=== PATIENT | female | born 1965 | race American Indian/Alaskan Native ===

== ENCOUNTER 2016-11-03 10:26 | Emergency (ER) | payer MEDICARE | END 2016-11-03 11:17 | disposition left against medical advice (07) | LOC: ED 10:26 | DX: M79.606 Pain in leg, unspecified (principal); Z53.21 Procedure and treatment not carried out due to patient leaving prior to being seen by health care provider ==

== ENCOUNTER 2016-11-09 10:38 | Emergency (ER) | payer MEDICARE ==
[2016-11-09 11:21] LABS: Basophils % (Auto) 1.9 % (0.0-1.8); Eosinophils % (Auto) 2.2 % (0.0-4.3); Hematocrit 44.5 % (30.3-42.9); Hemoglobin 14.8 gm/dl (10.1-14.3); Mean Corpuscular HGB Conc 33 % (30-34); Mean Corpuscular Hemoglobin 32 pg (28-32); Mean Corpuscular Volume 96 fl (79-97); Platelet Count 212 K/mm3 (140-440); Red Blood Count 4.65 M/mm3 (3.65-5.03); Red Cell Distribution Width 13.1 % (13.2-15.2)
[2016-11-09 11:41] LABS: Anion Gap 19 mmol/L; Blood Urea Nitrogen 16 mg/dL (7-17); Calcium 10.1 mg/dL (8.4-10.2); Carbon Dioxide 25 mmol/L (22-30); Chloride 95.5 mmol/L (98-107); Glucose 427 mg/dL (65-100); Potassium 4.3 mmol/L (3.6-5.0); Sodium 135 mmol/L (137-145)
[2016-11-09] MEDS ORDERED: ZESTRIL PO ONE (12:15)
[2016-11-09] MEDS ORDERED: GLUCOPHAGE PO ONE (12:15)
[2016-11-09] MEDS ORDERED: HCTZ PO ONE (12:15)
--- NOTE | 2016-11-09 12:55 | Emergency Department Report ---
ED General Adult HPI - General Chief complaint: Extremity Injury, Lower Stated complaint: LEG PAIN Time Seen by Provider: 11/09/16 11:59 Source: patient Mode of arrival: Ambulatory Limitations: No Limitations - History of Present Illness Initial comments: 51-year-old female with a past medical history of hypertension, diabetic neuropathy, not insulin-dependent diabetes presents to the hospital requesting a refill her medication. Patient has been noncompliant with her medication 1 month the lack of primary care doctor. She complains of ongoing moderate left distal leg pain secondary to neuropathy. Also states she needs a muscle relaxer due to pain at night. Patient denies headache, nausea, vomiting, focal weakness or numbness. - Related Data Previous Rx's Medication Instructions Recorded Last Taken Type Ibuprofen [Motrin] 600 mg PO Q8H PRN #50 tablet 01/10/14 Unknown Rx Oxycodone HCl/Acetaminophen 1 each PO Q6HR PRN #20 tablet 01/10/14 Unknown Rx [Percocet 7.5-325 mg] HYDROcodone/APAP 5-325 [[place] 1 each PO Q6HR PRN #20 tablet 03/05/14 Unknown Rx 5-325 mg TAB] Lisinopril/Hydrochlorothiazide 1 tab PO QDAY #60 tablet 03/05/14 Unknown Rx [Zestoretic 20-25 mg] Gabapentin 300 mg PO BID #60 capsule 05/19/14 Unknown Rx Mineral Oil [Mineral Oil Heavy] 30 ml PO TID #1 oil 05/19/14 Unknown Rx Polyethylene Glycol 3350 [Miralax] 17 gm PO DAILY #10 powder 05/19/14 Unknown Rx methOCARBAMOL [Robaxin] 500 mg PO BID #14 tab 05/19/14 Unknown Rx Amoxicillin/K Clav Tab [Augmentin 1 tab PO Q12HR #20 tab 08/19/15 Unknown Rx 875 mg] Ibuprofen [Motrin 600 MG tab] 600 mg PO Q8H PRN #30 tablet 08/19/15 Unknown Rx guaiFENesin/CODEINE [Robitussin AC] 10 ml PO Q6HR PRN #180 ml 08/19/15 Unknown Rx Cyclobenzaprine HCl [Flexeril 5 MG 5 mg PO TID #20 tab 11/09/16 Unknown Rx TAB] Gabapentin [Neurontin] 300 mg PO Q8HR #90 capsule 11/09/16 Unknown Rx Lisinopril/Hydrochlorothiazide 1 tab PO QDAY #30 tab 11/09/16 Unknown Rx [Zestoretic 20-25 mg] metFORMIN [Glucophage] 500 mg PO BID #60 tablet 11/09/16 Unknown Rx Allergies Allergy/AdvReac Type Severity Reaction Status Date / Time No Known Allergies Allergy Verified 11/09/16 10:50 ED Review of Systems ROS: Stated complaint: LEG PAIN Other details as noted in HPI Comment: All other systems reviewed and negative Other: Constitutional: No fevers chills Eyes: No eye pain visual changes ENT: No ear pain or throat pain Neck: Denies pain Respiratory: Denies cough wheezing shortness of breath Cardiovascular: Denies chest pain, palpitations, syncope GI: Denies abdominal pain, nausea, vomiting, diarrhea : Denies dysuria Musculoskeletal: Denies back pain Skin: Denies rash, lesions, erythema Neurologic: Denies headache, numbness, weakness Psychiatric: Denies suicidal ideation, hallucinations ED Past Medical Hx - Past Medical History Hx Hypertension: Yes (noncompliant with meds) Hx Congestive Heart Failure: No Hx Diabetes: Yes Hx Asthma: No Hx COPD: No Hx HIV: No Additional medical history: neuropathy - Social History Smoking Status: Never Smoker Substance Use Type: None - Medications Home Medications: Home Medications Medication Instructions Recorded Confirmed Last Taken Type Ibuprofen [Motrin] 600 mg PO Q8H PRN #50 tablet 01/10/14 11/09/16 Unknown Rx Oxycodone HCl/Acetaminophen 1 each PO Q6HR PRN #20 tablet 01/10/14 11/09/16 Unknown Rx [Percocet 7.5-325 mg] HYDROcodone/APAP 5-325 [[place] 1 each PO Q6HR PRN #20 tablet 03/05/14 11/09/16 Unknown Rx 5-325 mg TAB] Lisinopril/Hydrochlorothiazide 1 tab PO QDAY #60 tablet 03/05/14 11/09/16 Unknown Rx [Zestoretic 20-25 mg] Gabapentin 300 mg PO BID #60 capsule 05/19/14 11/09/16 Unknown Rx Mineral Oil [Mineral Oil Heavy] 30 ml PO TID #1 oil 05/19/14 11/09/16 Unknown Rx Polyethylene Glycol 3350 [Miralax] 17 gm PO DAILY #10 powder 05/19/14 11/09/16 Unknown Rx methOCARBAMOL [Robaxin] 500 mg PO BID #14 tab 05/19/14 11/09/16 Unknown Rx Amoxicillin/K Clav Tab [Augmentin 1 tab PO Q12HR #20 tab 08/19/15 11/09/16 Unknown Rx 875 mg] Ibuprofen [Motrin 600 MG tab] 600 mg PO Q8H PRN #30 tablet 08/19/15 11/09/16 Unknown Rx guaiFENesin/CODEINE [Robitussin AC] 10 ml PO Q6HR PRN #180 ml 08/19/15 11/09/16 Unknown Rx Cyclobenzaprine HCl [Flexeril 5 MG 5 mg PO TID #20 tab 11/09/16 Unknown Rx TAB] Gabapentin [Neurontin] 300 mg PO Q8HR #90 capsule 11/09/16 Unknown Rx Lisinopril/Hydrochlorothiazide 1 tab PO QDAY #30 tab 11/09/16 Unknown Rx [Zestoretic 20-25 mg] metFORMIN [Glucophage] 500 mg PO BID #60 tablet 11/09/16 Unknown Rx ED Physical Exam - General Limitations: No Limitations - Other Other exam information: General: No limitations, patient is alert in no acute distress Head exam: Atraumatic, normocephalic Eyes exam: Normal appearance ENT: Moist mucous membrane, normal oropharynx Neck exam: Normal inspection, full range of motion, no meningismus nontender Respiratory exam: Clear to auscultation bilateral, no wheezes, rales, crackles Cardiovascular: Normal rate and rhythm, normal heart sounds Abdomen: Soft, nondistended, and nontender, with normal bowel sounds, no rebound, or guarding Extremity: Full range of motion normal inspection no deformity, no calf tenderness or edema Back: Normal Inspection, full range of motion, no tenderness Neurologic: Alert, oriented x3, cranial nerves intact, no motor or sensory deficit Psychiatric: normal affect, normal mood Skin: Warm, dry, intact ED Course Vital Signs 11/09/16 11/09/16 10:50 12:10 Temperature 98.5 F Pulse Rate 99 H Respiratory 18 16 Rate Blood Pressure 204/102 O2 Sat by Pulse 98 Oximetry - Reevaluation(s) Reevaluation #1: 11/09/16 12:55 Patient refused IV treatment for glucose or Wednesday for BP recheck. Patient just wanted her recently prescribed medication doses. Most recent R Kaushal is from 2015 patient states there is no change. ED Medical Decision Making - Lab Data Result diagrams: 11/09/16 10:54 11/09/16 10:54 Lab Results 11/09/16 11/09/16 11/09/16 Range/Units 10:51 10:54 10:54 WBC 6.0 (4.5-11.0) K/mm3 RBC 4.65 (3.65-5.03) M/mm3 Hgb 14.8 H (10.1-14.3) gm/dl Hct 44.5 H (30.3-42.9) % MCV 96 (79-97) fl MCH 32 (28-32) pg MCHC 33 (30-34) % RDW 13.1 L (13.2-15.2) % Plt Count 212 (140-440) K/mm3 Lymph % (Auto) 35.4 H (13.4-35.0) % [place] % (Auto) 8.6 H (0.0-7.3) % Eos % (Auto) 2.2 (0.0-4.3) % Baso % (Auto) 1.9 H (0.0-1.8) % Lymph # 2.1 (1.2-5.4) K/mm3 [place] # 0.5 (0.0-0.8) K/mm3 Eos # 0.1 (0.0-0.4) K/mm3 Baso # 0.1 (0.0-0.1) K/mm3 Seg Neutrophils % 51.9 (40.0-70.0) % Seg Neutrophils # 3.1 (1.8-7.7) K/mm3 VBG pH (7.320-7.420) Sodium 135 L (137-145) mmol/L Potassium 4.3 (3.6-5.0) mmol/L Chloride 95.5 L (98-107) mmol/L Carbon Dioxide 25 (22-30) mmol/L Anion Gap 19 mmol/L BUN 16 (7-17) mg/dL Creatinine 0.8 (0.7-1.2) mg/dL Estimated GFR > 60 ml/min BUN/Creatinine Ratio 20.00 % Glucose 427 H (65-100) mg/dL POC Glucose 435 H (70-105) Calcium 10.1 (8.4-10.2) mg/dL 11/09/16 Range/Units 10:54 WBC (4.5-11.0) K/mm3 RBC (3.65-5.03) M/mm3 Hgb (10.1-14.3) gm/dl Hct (30.3-42.9) % MCV (79-97) fl MCH (28-32) pg MCHC (30-34) % RDW (13.2-15.2) % Plt Count (140-440) K/mm3 Lymph % (Auto) (13.4-35.0) % [place] % (Auto) (0.0-7.3) % Eos % (Auto) (0.0-4.3) % Baso % (Auto) (0.0-1.8) % Lymph # (1.2-5.4) K/mm3 [place] # (0.0-0.8) K/mm3 Eos # (0.0-0.4) K/mm3 Baso # (0.0-0.1) K/mm3 Seg Neutrophils % (40.0-70.0) % Seg Neutrophils # (1.8-7.7) K/mm3 VBG pH 7.288 L (7.320-7.420) Sodium (137-145) mmol/L Potassium (3.6-5.0) mmol/L Chloride (98-107) mmol/L Carbon Dioxide (22-30) mmol/L Anion Gap mmol/L BUN (7-17) mg/dL Creatinine (0.7-1.2) mg/dL Estimated GFR ml/min BUN/Creatinine Ratio % Glucose (65-100) mg/dL POC Glucose (70-105) Calcium (8.4-10.2) mg/dL - Medical Decision Making Patient has chronic hypertension uncontrolled secondary to medication noncompliance. No signs of hypertensive emergency at this time. Patient also has ongoing diabetic neuropathy pain without signs of DKA. Patient received metformin 1000 mg and her most recent BP medication dose and declined more aggressive treatment in the ED. Plan to discharge home with refills and follow- up. - Differential Diagnosis DKA, hypertensive emergency, neuropathy, noncompliance, hypoglycemia Critical Care Time: No Critical care attestation.: If time is entered above; I have spent that time in minutes in the direct care of this critically ill patient, excluding procedure time. ED Disposition Clinical Impression: Diabetes mellitus with hyperglycemia, Uncontrolled hypertension, Noncompliance with medication regimen, Diabetic neuropathy Disposition: DC-01 TO HOME OR SELFCARE Is pt being admited?: No Does the pt Need Aspirin: No Condition: Stable Additional Instructions: Take the medications as prescribed. Follow with primary care doctor or clinic provided. Return if symptoms worsen. Prescriptions: Cyclobenzaprine HCl [Flexeril 5 MG TAB] 5 mg PO TID #20 tab Gabapentin [Neurontin] 300 mg PO Q8HR #90 capsule Lisinopril/Hydrochlorothiazide [Zestoretic 20-25 mg] 1 tab PO QDAY #30 tab metFORMIN [Glucophage] 500 mg PO BID #60 tablet Referrals: [facility] [Provider Group] - 3-5 Days EDDY ARRIAGA MD [Staff Physician] - 3-5 Days Time of Disposition: 12:59
[2016-11-09 12:58] LABS: Bacteria,Urine 1+ /HPF (Negative); Bilirubin,Urine NEG (Negative); Blood,Urine SM (Negative); Ketones,Urine NEG (Negative); Leukocyte Esterase,Urine MOD (Negative); Mucus,Urine FEW /HPF; Nitrite,Urine POS (Negative); Protein,Urine <15 mg/dL mg/dL (Negative); Urobilinogen,Urine < 2.0 mg/dL (<2.0)
[2016-11-09 13:19] VITALS: BP 194/86
== END 2016-11-09 13:24 | disposition home or self-care (01) ==
LOC: ED 10:38
DX: E11.65 Type 2 diabetes mellitus with hyperglycemia (principal); E11.21 Type 2 diabetes mellitus with diabetic nephropathy; I10 Essential (primary) hypertension
CPT/HCPCS: 36415; 80048; 81001; 82805; 82962; 85025; 99284

== ENCOUNTER 2017-09-19 09:25 | Emergency (ER) | payer MEDICARE ==
[2017-09-19 09:38] VITALS: BP 160/94
--- NOTE | 2017-09-19 09:56 | Emergency Department Report ---
ED General Adult HPI - General Chief complaint: Pain General Stated complaint: LEG PAIN Time Seen by Provider: 09/19/17 09:48 Source: patient Mode of arrival: Ambulatory Limitations: No Limitations - History of Present Illness Initial comments: Patient is 52 years old female with history of hypertension, diabetes and diabetic neuropathy. Patient presented to the ER complaining of bilateral lower extremity pain secondary to neuropathy per patient report. Patient stated that she is out of her blood pressure medicine, diabetes medicine and her Neurontin. Patient denied any headache, chest pain, weakness numbness or tingling sensation. - Related Data Previous Rx's Medication Instructions Recorded Last Taken Type Ibuprofen [Motrin] 600 mg PO Q8H PRN #50 tablet 01/10/14 Unknown Rx Oxycodone HCl/Acetaminophen 1 each PO Q6HR PRN #20 tablet 01/10/14 Unknown Rx [Percocet 7.5-325 mg] HYDROcodone/APAP 5-325 [[place] 1 each PO Q6HR PRN #20 tablet 03/05/14 Unknown Rx 5-325 mg TAB] Lisinopril/Hydrochlorothiazide 1 tab PO QDAY #60 tablet 03/05/14 Unknown Rx [Zestoretic 20-25 mg] Gabapentin 300 mg PO BID #60 capsule 05/19/14 Unknown Rx Mineral Oil [Mineral Oil Heavy] 30 ml PO TID #1 oil 05/19/14 Unknown Rx Polyethylene Glycol 3350 [Miralax] 17 gm PO DAILY #10 powder 05/19/14 Unknown Rx methOCARBAMOL [Robaxin] 500 mg PO BID #14 tab 05/19/14 Unknown Rx Amoxicillin/K Clav Tab [Augmentin 1 tab PO Q12HR #20 tab 08/19/15 Unknown Rx 875 mg] Ibuprofen [Motrin 600 MG tab] 600 mg PO Q8H PRN #30 tablet 08/19/15 Unknown Rx guaiFENesin/CODEINE [Robitussin AC] 10 ml PO Q6HR PRN #180 ml 08/19/15 Unknown Rx Cyclobenzaprine HCl [Flexeril 5 MG 5 mg PO TID #20 tab 11/09/16 Unknown Rx TAB] Gabapentin [Neurontin] 300 mg PO Q8HR #90 capsule 11/09/16 Unknown Rx Lisinopril/Hydrochlorothiazide 1 tab PO QDAY #30 tab 11/09/16 Unknown Rx [Zestoretic 20-25 mg] metFORMIN [Glucophage] 500 mg PO BID #60 tablet 11/09/16 Unknown Rx Allergies Allergy/AdvReac Type Severity Reaction Status Date / Time No Known Allergies Allergy Verified 11/09/16 10:50 ED Review of Systems ROS: Stated complaint: LEG PAIN Other details as noted in HPI Comment: All other systems reviewed and negative ENT: denies: throat pain Respiratory: denies: cough, shortness of breath, SOB with exertion Cardiovascular: denies: chest pain, palpitations Gastrointestinal: denies: abdominal pain, nausea Musculoskeletal: denies: back pain Neurological: denies: headache, weakness, numbness, paresthesias, confusion, abnormal gait ED Past Medical Hx - Past Medical History Previous Medical History?: Yes Hx Hypertension: Yes (noncompliant with meds) Hx Congestive Heart Failure: No Hx Diabetes: Yes Hx Asthma: No Hx COPD: No Hx HIV: No Additional medical history: neuropathy - Surgical History Past Surgical History?: No - Social History Smoking Status: Never Smoker Substance Use Type: Alcohol - Medications Home Medications: Home Medications Medication Instructions Recorded Confirmed Last Taken Type Ibuprofen [Motrin] 600 mg PO Q8H PRN #50 tablet 01/10/14 11/09/16 Unknown Rx Oxycodone HCl/Acetaminophen 1 each PO Q6HR PRN #20 tablet 01/10/14 11/09/16 Unknown Rx [Percocet 7.5-325 mg] HYDROcodone/APAP 5-325 [[place] 1 each PO Q6HR PRN #20 tablet 03/05/14 11/09/16 Unknown Rx 5-325 mg TAB] Lisinopril/Hydrochlorothiazide 1 tab PO QDAY #60 tablet 03/05/14 11/09/16 Unknown Rx [Zestoretic 20-25 mg] Gabapentin 300 mg PO BID #60 capsule 05/19/14 11/09/16 Unknown Rx Mineral Oil [Mineral Oil Heavy] 30 ml PO TID #1 oil 05/19/14 11/09/16 Unknown Rx Polyethylene Glycol 3350 [Miralax] 17 gm PO DAILY #10 powder 05/19/14 11/09/16 Unknown Rx methOCARBAMOL [Robaxin] 500 mg PO BID #14 tab 05/19/14 11/09/16 Unknown Rx Amoxicillin/K Clav Tab [Augmentin 1 tab PO Q12HR #20 tab 08/19/15 11/09/16 Unknown Rx 875 mg] Ibuprofen [Motrin 600 MG tab] 600 mg PO Q8H PRN #30 tablet 08/19/15 11/09/16 Unknown Rx guaiFENesin/CODEINE [Robitussin AC] 10 ml PO Q6HR PRN #180 ml 08/19/15 11/09/16 Unknown Rx Cyclobenzaprine HCl [Flexeril 5 MG 5 mg PO TID #20 tab 11/09/16 Unknown Rx TAB] Gabapentin [Neurontin] 300 mg PO Q8HR #90 capsule 11/09/16 Unknown Rx Lisinopril/Hydrochlorothiazide 1 tab PO QDAY #30 tab 11/09/16 Unknown Rx [Zestoretic 20-25 mg] metFORMIN [Glucophage] 500 mg PO BID #60 tablet 11/09/16 Unknown Rx ED Physical Exam - General Limitations: No Limitations General appearance: alert, in no apparent distress - Head Head exam: Present: atraumatic, normocephalic, normal inspection - Eye Eye exam: Present: normal appearance - ENT ENT exam: Present: normal exam, normal orophraynx, mucous membranes moist - Neck Neck exam: Present: normal inspection, full ROM. Absent: tenderness, meningismus, lymphadenopathy - Respiratory Respiratory exam: Present: normal lung sounds bilaterally - Cardiovascular Cardiovascular Exam: Present: regular rate, normal rhythm, normal heart sounds - GI/Abdominal GI/Abdominal exam: Present: soft, normal bowel sounds. Absent: distended, tenderness, guarding, rebound, rigid, organomegaly, mass, bruit, pulsatile mass - Extremities Exam Extremities exam: Present: normal inspection, full ROM, normal capillary refill. Absent: tenderness, calf tenderness - Back Exam Back exam: Present: normal inspection, full ROM. Absent: tenderness, CVA tenderness (R), CVA tenderness (L), muscle spasm, paraspinal tenderness, vertebral tenderness, rash noted - Neurological Exam Neurological exam: Present: alert, oriented X3, CN II-XII intact, normal gait, reflexes normal - Skin Skin exam: Present: warm, intact, normal color ED Course Vital Signs 09/19/17 09:31 Temperature 98.2 F Pulse Rate 74 Respiratory 20 Rate Blood Pressure 160/94 O2 Sat by Pulse 99 Oximetry Critical care attestation.: If time is entered above; I have spent that time in minutes in the direct care of this critically ill patient, excluding procedure time. ED Disposition Clinical Impression: Bilateral leg pain Disposition: DC-01 TO HOME OR SELFCARE Is pt being admited?: No Condition: Stable Instructions: Diabetic Neuropathy (ED), Hypertension (ED), Diabetes Mellitus Type 2 in Adults (ED)
== END 2017-09-19 10:03 | disposition home or self-care (01) ==
LOC: ED 09:25
DX: M79.661 Pain in right lower leg (principal); M79.662 Pain in left lower leg; I10 Essential (primary) hypertension; E11.9 Type 2 diabetes mellitus without complications; Z79.01 Long term (current) use of anticoagulants
CPT/HCPCS: 99282

== ENCOUNTER 2018-10-13 10:19 | Emergency (ER) | payer MEDICARE ==
[2018-10-13] MEDS ORDERED: ZOFRAN IM ONE (11:19)
[2018-10-13] MEDS ORDERED: MORPHINE IM ONE (11:19)
[2018-10-13] MEDS ORDERED: CATAPRES PO ONE (11:19)
--- NOTE | 2018-10-13 11:23 | Emergency Department Report ---
ED Headache HPI - General Chief Complaint: Headache Stated Complaint: HEADACHE Time Seen by Provider: 10/13/18 11:12 Source: patient - History of Present Illness Initial Comments: Patient is 53 years old female with history of hypertension. Patient presented to the ER complaining of headache, occipital for the last 4 days. Patient stated that headache is constant and not relieved by ibuprofen. Patient denied any weakness, numbness or tingling sensation. She also denied any chest pain or shortness of breath. Patient found to have a blood pressure of 218/87. Patient stated that she is out of her blood pressure medication. Allergies/Adverse Reactions: Allergies No Known Allergies Allergy (Verified 10/13/18 10:20) Home Medications: Ambulatory Orders Ibuprofen [Motrin] 600 mg PO Q8H PRN #50 tablet 01/10/14 Oxycodone HCl/Acetaminophen [Percocet 7.5-325 mg] 1 each PO Q6HR PRN #20 tablet 01/10/14 HYDROcodone/APAP 5-325 [[place] 5-325 mg TAB] 1 each PO Q6HR PRN #20 tablet 03/05/14 Lisinopril/Hydrochlorothiazide [Zestoretic 20-25 mg] 1 tab PO QDAY #60 tablet 03/05/14 Gabapentin 300 mg PO BID #60 capsule 05/19/14 Mineral Oil [Mineral Oil Heavy] 30 ml PO TID #1 oil 05/19/14 Polyethylene Glycol 3350 [Miralax] 17 gm PO DAILY #10 powder 05/19/14 methOCARBAMOL [Robaxin] 500 mg PO BID #14 tab 05/19/14 Amoxicillin/K Clav Tab [Augmentin 875 mg] 1 tab PO Q12HR #20 tab 08/19/15 Ibuprofen [Motrin 600 MG tab] 600 mg PO Q8H PRN #30 tablet 08/19/15 guaiFENesin/CODEINE [Robitussin AC] 10 ml PO Q6HR PRN #180 ml 08/19/15 Cyclobenzaprine HCl [Flexeril 5 MG TAB] 5 mg PO TID #20 tab 11/09/16 Gabapentin [Neurontin] 300 mg PO Q8HR #90 capsule 11/09/16 Lisinopril/Hydrochlorothiazide [Zestoretic 20-25 mg] 1 tab PO QDAY #30 tab 11/09/16 metFORMIN [Glucophage] 500 mg PO BID #60 tablet 11/09/16 Gabapentin [Neurontin] 300 mg PO BID #60 cap 09/19/17 Lisinopril/Hydrochlorothiazide [Zestoretic 20-25 mg] 1 tab PO QDAY #30 tab 09/19/17 metFORMIN [Glucophage] 500 mg PO BID #60 tablet 09/19/17 ED Review of Systems ROS: Stated complaint: HEADACHE Other details as noted in HPI Comment: All other systems reviewed and negative Constitutional: denies: chills, fever Respiratory: denies: cough, orthopnea, shortness of breath, SOB with exertion, SOB at rest, wheezing Cardiovascular: denies: chest pain, palpitations Neurological: headache. denies: weakness, numbness, paresthesias, confusion, abnormal gait, vertigo, other ED Past Medical Hx - Past Medical History Hx Hypertension: Yes (noncompliant with meds) Hx Congestive Heart Failure: No Hx Diabetes: Yes Hx Asthma: No Hx COPD: No Hx HIV: No Additional medical history: neuropathy - Social History Smoking Status: Never Smoker Substance Use Type: None - Medications Home Medications: Home Medications Medication Instructions Recorded Confirmed Last Taken Type Ibuprofen [Motrin] 600 mg PO Q8H PRN #50 tablet 01/10/14 11/09/16 Unknown Rx Oxycodone HCl/Acetaminophen 1 each PO Q6HR PRN #20 tablet 01/10/14 11/09/16 Unknown Rx [Percocet 7.5-325 mg] HYDROcodone/APAP 5-325 [[place] 1 each PO Q6HR PRN #20 tablet 03/05/14 11/09/16 Unknown Rx 5-325 mg TAB] Lisinopril/Hydrochlorothiazide 1 tab PO QDAY #60 tablet 03/05/14 11/09/16 Unknown Rx [Zestoretic 20-25 mg] Gabapentin 300 mg PO BID #60 capsule 05/19/14 11/09/16 Unknown Rx Mineral Oil [Mineral Oil Heavy] 30 ml PO TID #1 oil 05/19/14 11/09/16 Unknown Rx Polyethylene Glycol 3350 [Miralax] 17 gm PO DAILY #10 powder 05/19/14 11/09/16 Unknown Rx methOCARBAMOL [Robaxin] 500 mg PO BID #14 tab 05/19/14 11/09/16 Unknown Rx Amoxicillin/K Clav Tab [Augmentin 1 tab PO Q12HR #20 tab 08/19/15 11/09/16 Unknown Rx 875 mg] Ibuprofen [Motrin 600 MG tab] 600 mg PO Q8H PRN #30 tablet 08/19/15 11/09/16 Un known Rx guaiFENesin/CODEINE [Robitussin AC] 10 ml PO Q6HR PRN #180 ml 08/19/15 11/09/16 Unknown Rx Cyclobenzaprine HCl [Flexeril 5 MG 5 mg PO TID #20 tab 11/09/16 Unknown Rx TAB] Gabapentin [Neurontin] 300 mg PO Q8HR #90 capsule 11/09/16 Unknown Rx Lisinopril/Hydrochlorothiazide 1 tab PO QDAY #30 tab 11/09/16 Unknown Rx [Zestoretic 20-25 mg] metFORMIN [Glucophage] 500 mg PO BID #60 tablet 11/09/16 Unknown Rx Gabapentin [Neurontin] 300 mg PO BID #60 cap 09/19/17 Unknown Rx Lisinopril/Hydrochlorothiazide 1 tab PO QDAY #30 tab 09/19/17 Unknown Rx [Zestoretic 20-25 mg] metFORMIN [Glucophage] 500 mg PO BID #60 tablet 09/19/17 Unknown Rx ED Physical Exam - General Limitations: No Limitations General appearance: alert, in no apparent distress - Head Head exam: Present: atraumatic, normocephalic, normal inspection - Eye Eye exam: Present: normal appearance, PERRL - ENT ENT exam: Present: normal exam, normal orophraynx, mucous membranes moist - Neck Neck exam: Present: normal inspection, full ROM. Absent: tenderness, meningismus, lymphadenopathy, thyromegaly - Respiratory Respiratory exam: Present: normal lung sounds bilaterally - Cardiovascular Cardiovascular Exam: Present: regular rate, normal rhythm, normal heart sounds - GI/Abdominal GI/Abdominal exam: Present: soft, normal bowel sounds. Absent: distended, tenderness, guarding, rebound, rigid, organomegaly, mass, bruit, pulsatile mass, hernia - Extremities Exam Extremities exam: Present: normal inspection, full ROM, normal capillary refill. Absent: pedal edema, calf tenderness - Back Exam Back exam: Present: normal inspection, full ROM. Absent: CVA tenderness (R), CVA tenderness (L), muscle spasm, paraspinal tenderness, vertebral tenderness, rash noted - Neurological Exam Neurological exam: Present: alert, oriented X3, CN II-XII intact, normal gait, reflexes normal - Psychiatric Psychiatric exam: Present: normal mood - Skin Skin exam: Present: warm, intact, normal color ED Course Vital Signs 10/13/18 10/13/18 10/13/18 10:36 11:51 12:28 Temperature 98.4 F Pulse Rate 86 81 70 Respiratory 16 Rate Blood Pressure 229/97 Blood Pressure 218/87 198/94 [Left] O2 Sat by Pulse 100 Oximetry 10/13/18 12:53 Temperature Pulse Rate 72 Respiratory Rate Blood Pressure Blood Pressure 134/73 [Left] O2 Sat by Pulse Oximetry ED Medical Decision Making - Lab Data Result diagrams: 10/13/18 12:15 10/13/18 12:15 - EKG Data -: EKG Interpreted by Me EKG shows normal: sinus rhythm Rate: normal - EKG Data Interpretation: no acute changes - Radiology Data Radiology results: report reviewed CT brain is unremarkable for acute finding. - Medical Decision Making Patient is 53 years old female with history of hypertension. Patient presented to the ER complaining of headache, occipital for the last 4 days. Patient stated that headache is constant and not relieved by ibuprofen. Patient denied any weakness, numbness or tingling sensation. She also denied any chest pain or shortness of breath. Patient found to have a blood pressure of 218/87. Elmer byrd stated that she is out of her blood pressure medication. Patient received clonidine 0.2 mg and refused pain medicine. Patient stated that her headache is completely resolved. Her current blood pressure now is 145/68. I counseled the patient about compliance with his blood pressure and diabetic medication. I also give her a referral to [facility]. Patient also advised to return to the ER if she have any new symptoms. Critical care attestation.: If time is entered above; I have spent that time in minutes in the direct care of this critically ill patient, excluding procedure time. ED Disposition Clinical Impression: Headache, Malignant hypertension Disposition: - TO HOME OR SELFCARE Is pt being admited?: No Condition: Stable Instructions: Hypertension (ED), Acute Headache (ED) Referrals: PRIMARY CARE, [Primary Care Provider] - 3-5 Days [facility] [Provider Group] - 3-5 Days
[2018-10-13 12:23] LABS: Basophils # (Auto) 0.1 K/mm3 (0.0-0.1); Eosinophils # (Auto) 0.1 K/mm3 (0.0-0.4); Eosinophils % (Auto) 1.7 % (0.0-4.3); Hematocrit 45.4 % (30.3-42.9); Hemoglobin 15.4 gm/dl (10.1-14.3); Lymphocytes # (Auto) 1.8 K/mm3 (1.2-5.4); Lymphocytes % (Auto) 30.7 % (13.4-35.0); Mean Corpuscular HGB Conc 34 % (30-34); Mean Corpuscular Volume 97 fl (79-97); Monocytes # (Auto) 0.3 K/mm3 (0.0-0.8); Monocytes % (Auto) 5.6 % (0.0-7.3); Red Blood Count 4.69 M/mm3 (3.65-5.03); Red Cell Distribution Width 13.1 % (13.2-15.2)
--- NOTE | 2018-10-13 12:33 | Cat Scan Report ---
CT HEAD WITHOUT CONTRAST INDICATION / CLINICAL INFORMATION: Headache for 4 days, pain in eyes, left arm pain. TECHNIQUE: Axial imaging performed from the skull apex through the skull base without the use of cont rast. Sagittal and coronal reformatted images. All CT scans at this location are performed using CT dose reduction for ALARA by means of automated exposure control. COMPARISON: None available. FINDINGS: CEREBRAL PARENCHYMA: Focal chronic infarcts are identified in the left posterior frontal white matter measuring 1.4 cm and left temporal white matter measuring 0.8 cm. Chronic lacunar infarct in the lef t posterior basal ganglia is also noted. The remaining brain parenchyma demonstrates normal attenuati on. No evidence for mass or extra-axial collection. HEMORRHAGE: None. EXTRA-AXIAL SPACES: Normal in size and morphology for the patient's age. VENTRICULAR SYSTEM: Normal in size and morphology for the patient's age. MIDLINE SHIFT OR HERNIATION: None. CEREBELLUM / BRAINSTEM: No significant abnormality. CALVARIUM: No significant abnormality. ORBITS: Orbital cavities and contents are unremarkable. The globes are symmetric and within normal li mits on noncontrast CT. PARANASAL SINUSES / MASTOID AIR CELLS: Normal as visualized. SOFT TISSUES of HEAD: No significant abnormality. ADDITIONAL FINDINGS: None. IMPRESSION: No acute intracranial abnormality. Chronic focal infarcts as described above. Signer Name: Chad Youssef Jr, MD Signed: 10/13/2018 12:29 PM Workstation Name: [id number]
[2018-10-13 12:54] VITALS: BP 134/73
[2018-10-13 13:12] LABS: Alanine Aminotransferase 19 units/L (7-56); Albumin 4.1 g/dL (3.9-5); BUN/Creatinine Ratio 16; Blood Urea Nitrogen 13 mg/dL (7-17); Calcium 9.7 mg/dL (8.4-10.2); Hemolysis Index 10
[2018-10-13 14:54] LABS: Platelet Count 217 K/mm3 (140-440)
== END 2018-10-13 14:51 | disposition home or self-care (01) ==
LOC: ED 10:19
DX: I10 Essential (primary) hypertension (principal); E11.40 Type 2 diabetes mellitus with diabetic neuropathy, unspecified; Z79.4 Long term (current) use of insulin; Z79.899 Other long term (current) drug therapy
CPT/HCPCS: 36415; 70450; 80053; 85025; 93005; 93010; 99284

== ENCOUNTER 2021-08-14 10:09 | Inpatient (IN) | payer MEDICARE ==
[2021-08-14 11:00] LABS: Basophils # (Auto) 0.1 K/mm3 (0.0-0.1); Basophils % (Auto) 0.7 % (0.0-1.8); Hematocrit 50.4 % (30.3-42.9); Hemoglobin 16.8 gm/dl (10.1-14.3); Lymphocytes # (Auto) 0.8 K/mm3 (1.2-5.4); Lymphocytes % (Auto) 6.2 % (13.4-35.0); Mean Corpuscular HGB Conc 33 % (30-34); Mean Corpuscular Volume 98 fl (79-97); Monocytes % (Auto) 8.3 % (0.0-7.3); Red Blood Count 5.13 M/mm3 (3.65-5.03); Red Cell Distribution Width 14.4 % (13.2-15.2)
--- NOTE | 2021-08-14 11:11 | XRay Report ---
CHEST 2 VIEWS INDICATION / CLINICAL INFORMATION: Chest Pain. COMPARISON: None available. FINDINGS: SUPPORT DEVICES: None. HEART / MEDIASTINUM: No significant abnormality. LUNGS / PLEURA: No significant pulmonary or pleural abnormality. No pneumothorax. ADDITIONAL FINDINGS: No significant additional findings. IMPRESSION: 1. No acute findings. Signer Name: Nitesh Burr MD Signed: 08/14/2021 11:07 AM Workstation Name: [id number]
[2021-08-14 11:12] LABS: INR 1.01 (0.87-1.13)
[2021-08-14 11:16] LABS: Partial Thromboplastin Time 31.8 Sec. (24.2-36.6)
[2021-08-14 11:25] LABS: Albumin 3.9 g/dL (3.9-5)
[2021-08-14 12:47] LABS: Platelet Count 169 K/mm3 (140-440)
[2021-08-14] MEDS ORDERED: methylPREDNISolone Sod Succinate 125 MG/2 ML INJ IM ONE (14:09)
[2021-08-14] MEDS ORDERED: IPRATROPIUM/ALBUTEROL SULFATE 3 ML AMPUL.NEB IH ONE (14:09)
[2021-08-14] MEDS ORDERED: ASPIRIN 81 MG TAB CHEW PO ONE (14:10)
[2021-08-14] MEDS ORDERED: FUROSEMIDE 40 MG/4 ML INJ IV ONE (17:28)
--- NOTE | 2021-08-14 17:43 | Emergency Department Report ---
ED General Adult HPI - General Chief complaint: Chest Pain Stated complaint: SICK/REF BY DOC/CHEST PAIN/FEVER Source: patient Mode of arrival: Ambulatory Limitations: No Limitations - History of Present Illness Initial comments: Patient is a 56-year-old -[place] female with a history of hypertension and den-ofxuroj-xhcidrvcu diabetes who presents to the ED with acute onset persistent shortness of breath, left-sided chest pain, orthopnea, wheezing and cough for the last 1 week. Patient states that she cannot walk for over 30 feet before feeling short of breath. Patient denies dizziness, syncope, nausea and vomiting, fever, chills, change in vision, headache, numbness and tingling or weakness of upper and lower extremities bilaterally, abdominal pain or diarrhea. MD Complaint: Dyspnea, chest pain or wheezing -: week(s) (1) Location: chest Radiation: non-radiation Severity scale (0 -10): 9 Quality: dull Consistency: constant Improves with: rest Worsens with: movement, other (supine) Associated Symptoms: denies other symptoms, chest pain, shortness of breath, other (orthopnea). denies: confusion, cough, diaphoresis, fever/chills, headaches, loss of appetite, malaise, nausea/vomiting, rash, syncope, weakness Treatments Prior to Arrival: none - Related Data Previous Rx's Medication Instructions Recorded Last Taken Type Ibuprofen [Motrin] 600 mg PO Q8H PRN #50 tablet 01/10/14 Unknown Rx Oxycodone HCl/Acetaminophen 1 each PO Q6HR PRN #20 tablet 01/10/14 Unknown Rx [Percocet 7.5-325 mg] HYDROcodone/APAP 5-325 [[place] 1 each PO Q6HR PRN #20 tablet 03/05/14 Unknown Rx 5-325 mg TAB] Lisinopril/Hydrochlorothiazide 1 tab PO QDAY #60 tablet 03/05/14 Unknown Rx [Zestoretic 20-25 mg] Gabapentin 300 mg PO BID #60 capsule 05/19/14 Unknown Rx Mineral Oil [Mineral Oil Heavy] 30 ml PO TID #1 oil 05/19/14 Unknown Rx methOCARBAMOL [Robaxin] 500 mg PO BID #14 tab 05/19/14 Unknown Rx polyethylene glycoL 3350 [Miralax] 17 gm PO DAILY #10 powder 05/19/14 Unknown Rx Amoxicillin/K Clav Tab [Augmentin 1 tab PO Q12HR #20 tab 08/19/15 Unknown Rx 875 mg] Ibuprofen [Motrin 600 MG tab] 600 mg PO Q8H PRN #30 tablet 08/19/15 Unknown Rx guaiFENesin/CODEINE [Robitussin AC] 10 ml PO Q6HR PRN #180 ml 08/19/15 Unknown Rx Cyclobenzaprine HCl [Flexeril 5 MG 5 mg PO TID #20 tab 11/09/16 Unknown Rx TAB] Gabapentin 300 mg PO Q8HR #90 capsule 11/09/16 Unknown Rx Lisinopril/Hydrochlorothiazide 1 tab PO QDAY #30 tab 09/19/17 Unknown Rx [Zestoretic 20-25 mg] metFORMIN [Glucophage] 500 mg PO BID #60 tablet 09/19/17 Unknown Rx Lisinopril/Hydrochlorothiazide 1 tab PO QDAY #30 tab 10/13/18 Unknown Rx [Zestoretic 20-25 mg] metFORMIN [Glucophage] 500 mg PO BID #60 tablet 10/13/18 Unknown Rx Gabapentin 300 mg PO BID #60 cap 08/17/19 Unknown Rx Insulin Detemir (Nf) [Levemir 20 unit SQ QHS #5 pen 08/17/19 Unknown Rx Flextouch (Nf)] Lisinopril/Hydrochlorothiazide 1 tab PO QDAY #30 tab 08/17/19 Unknown Rx [Zestoretic 20-25 mg] metFORMIN [Glucophage] 500 mg PO BID #60 tablet 08/17/19 Unknown Rx Allergies Allergy/AdvReac Type Severity Reaction Status Date / Time No Known Allergies Allergy Verified 08/14/21 10:47 ED Review of Systems ROS: Stated complaint: SICK/REF BY DOC/CHEST PAIN/FEVER Other details as noted in HPI Constitutional: denies: chills, fever Eyes: denies: eye pain, eye discharge, vision change ENT: denies: ear pain, throat pain Respiratory: cough, orthopnea, shortness of breath, SOB with exertion. denies: wheezing Cardiovascular: chest pain, dyspnea on exertion, syncope, paroxysmal nocturnal dyspnea Gastrointestinal: denies: abdominal pain, nausea, vomiting, diarrhea, constipation, hematemesis, hematochezia Genitourinary: denies: urgency, dysuria, frequency, hematuria, discharge, abnormal menses, dyspareunia Musculoskeletal: denies: back pain, joint swelling, arthralgia Skin: denies: rash, lesions Neurological: denies: headache, weakness, paresthesias Psychiatric: denies: anxiety, depression Hematological/Lymphatic: denies: easy bleeding, easy bruising ED Past Medical Hx - Past Medical History Hx Hypertension: Yes (noncompliant with meds) Hx Congestive Heart Failure: No Hx Diabetes: Yes Hx Asthma: No Hx COPD: No Hx HIV: No Additional medical history: neuropathy - Social History Smoking Status: Never Smoker Substance Use Type: None - Medications Home Medications: Home Medications Medication Instructions Recorded Confirmed Last Taken Type Ibuprofen [Motrin] 600 mg PO Q8H PRN #50 tablet 01/10/14 11/09/16 Unknown Rx Oxycodone HCl/Acetaminophen 1 each PO Q6HR PRN #20 tablet 01/10/14 11/09/16 Unknown Rx [Percocet 7.5-325 mg] HYDROcodone/APAP 5-325 [[place] 1 each PO Q6HR PRN #20 tablet 03/05/14 11/09/16 Unknown Rx 5-325 mg TAB] Lisinopril/Hydrochlorothiazide 1 tab PO QDAY #60 tablet 03/05/14 11/09/16 Unknown Rx [Zestoretic 20-25 mg] Gabapentin 300 mg PO BID #60 capsule 05/19/14 11/09/16 Unknown Rx Mineral Oil [Mineral Oil Heavy] 30 ml PO TID #1 oil 05/19/14 11/09/16 Unknown Rx methOCARBAMOL [Robaxin] 500 mg PO BID #14 tab 05/19/14 11/09/16 Unknown Rx polyethylene glycoL 3350 [Miralax] 17 gm PO DAILY #10 powder 05/19/14 11/09/16 Unknown Rx Amoxicillin/K Clav Tab [Augmentin 1 tab PO Q12HR #20 tab 08/19/15 11/09/16 Unknown Rx 875 mg] Ibuprofen [Motrin 600 MG tab] 600 mg PO Q8H PRN #30 tablet 08/19/15 11/09/16 Unknown Rx guaiFENesin/CODEINE [Robitussin AC] 10 ml PO Q6HR PRN #180 ml 08/19/15 11/09/16 Unknown Rx Cyclobenzaprine HCl [Flexeril 5 MG 5 mg PO TID #20 tab 11/09/16 Unknown Rx TAB] Gabapentin 300 mg PO Q8HR #90 capsule 11/09/16 Unknown Rx Lisinopril/Hydrochlorothiazide 1 tab PO QDAY #30 tab 09/19/17 Unknown Rx [Zestoretic 20-25 mg] metFORMIN [Glucophage] 500 mg PO BID #60 tablet 09/19/17 Unknown Rx Lisinopril/Hydrochlorothiazide 1 tab PO QDAY #30 tab 10/13/18 Unknown Rx [Zestoretic 20-25 mg] metFORMIN [Glucophage] 500 mg PO BID #60 tablet 10/13/18 Unknown Rx Gabapentin 300 mg PO BID #60 cap 08/17/19 Unknown Rx Insulin Detemir (Nf) [Levemir 20 unit SQ QHS #5 pen 08/17/19 Unknown Rx Flextouch (Nf)] Lisinopril/Hydrochlorothiazide 1 tab PO QDAY #30 tab 08/17/19 Unknown Rx [Zestoretic 20-25 mg] metFORMIN [Glucophage] 500 mg PO BID #60 tablet 08/17/19 Unknown Rx ED Physical Exam - General Limitations: No Limitations General appearance: alert, in no apparent distress - Head Head exam: Present: atraumatic, normocephalic, normal inspection - Eye Eye exam: Present: normal appearance, PERRL, EOMI Pupils: Present: normal accommodation - ENT ENT exam: Present: normal exam, normal orophraynx, mucous membranes moist, TM's normal bilaterally, normal external ear exam - Neck Neck exam: Present: normal inspection, full ROM. Absent: tenderness - Respiratory Respiratory exam: Present: normal lung sounds bilaterally, wheezes. Absent: respiratory distress, rales, rhonchi, stridor, chest wall tenderness, accessory muscle use, decreased breath sounds, prolonged expiratory - Cardiovascular Cardiovascular Exam: Present: regular rate, normal rhythm, normal heart sounds. Absent: systolic murmur, diastolic murmur, rubs, gallop - GI/Abdominal GI/Abdominal exam: Present: soft, normal bowel sounds. Absent: tenderness, guarding, rebound, hyperactive bowel sounds, hypoactive bowel sounds, organomegaly, mass - Extremities Exam Extremities exam: Present: normal inspection, full ROM, normal capillary refill. Absent: tenderness - Back Exam Back exam: Present: normal inspection, full ROM. Absent: tenderness, CVA tenderness (R), CVA tenderness (L), muscle spasm, paraspinal tenderness, vertebral tenderness - Neurological Exam Neurological exam: Present: alert, oriented X3, CN II-XII intact, normal gait, reflexes normal - Psychiatric Psychiatric exam: Present: normal affect, normal mood, anxious - Skin Skin exam: Present: warm, dry, intact, normal color. Absent: rash ED Course Vital Signs 08/14/21 08/14/21 10:42 14:03 Temperature 99.4 F 98.5 F Pulse Rate 88 82 Respiratory 20 16 Rate Blood Pressure 153/69 165/71 [Right] O2 Sat by Pulse 95 96 Oximetry ED Medical Decision Making - Lab Data Result diagrams: 08/14/21 10:48 08/14/21 10:48 - EKG Data EKG shows normal: sinus rhythm Rate: normal - EKG Data Interpretation: normal EKG 08/14/21 18:06 EKG shows normal sinus rhythm with a ventricular rate of [address] or T wave abnormalities. - Radiology Data Radiology results: report reviewed, [place] [id number] XRay Report Signed Patient: HODA JACKSON MR#: [id number] 0 : 1965 Acct:[id number] Age/Sex: 56 / F ADM Date: 08/14/21 Loc: ED Attending Dr: Ordering Physician: PILY HUNTER MD Date of Service: 08/14/21 Procedure(s): XR chest routine 2V Accession Number(s): [id number] cc: ED MD ELSA Fluoro Time In Minutes: CHEST 2 VIEWS INDICATION / CLINICAL INFORMATION: Chest Pain. COMPARISON: None available. FINDINGS: SUPPORT DEVICES: None. HEART / MEDIASTINUM: No significant abnormality. LUNGS / PLEURA: No significant pulmonary or pleural abnormality. No pneumoth orax. ADDITIONAL FINDINGS: No significant additional findings. IMPRESSION: 1. No acute findings. Signer Name: Nitesh Burr MD Signed: 08/14/2021 11:07 AM Workstation Name: [id number] Transcribed By: JOEL Dictated By: Nitesh Burr MD Electronically Authenticated By: Nitesh Burr MD Signed Date/Time: 08/14/21 110 DD/ 06 TD/TT: - Medical Decision Making This is a 56-year-old -[place] female with a history of hypertension and xey-uvxluxl-usgfrqycf diabetes who presents to the ED with acute onset persi stent shortness of breath, left-sided chest pain, orthopnea, wheezing and cough for the last 1 week. Patient states that she cannot walk for over 30 feet before feeling short of breath. In the ED, patient is alert and oriented x3 and is not in any distress. Patient was treated in the ED with DuoNeb and Solu- Medrol. Patient also received aspirin in the ED. Chest x-ray showed no acute cardiopulmonary abnormalities or pneumonitis. EKG shows normal sinus rhythm with a ventricular rate of 97 bpm. All lab test results were reviewed and are all nonactionable except for mild hyponatremia 132 mmol/L, hyperglycemia of 239 mg/dL, BNP of 13,374 and creatinine of 1.7. Patient was started on Lasix 40 mg IV x1. Patient case was discussed with the ED attending physician Dr. Deutsch who agreed with the plan of care admit the patient to the hospital for new onset CHF. I therefore paged and discussed the patient's case with the hospitalist physician on-call Dr. Dickerson who admitted the patient to the hospital. - Differential Diagnosis Pneumonia; Bronchitis; CHF; ACS; PE; Critical care attestation.: If time is entered above; I have spent that time in minutes in the direct care of this critically ill patient, excluding procedure time. ED Disposition Clinical Impression: Dyspnea on exertion, Nonspecific chest pain, New onset of congestive heart failure, Dehydration, Hyponatremia Disposition: 02 [facility]ORT TERM [facility]OS[facility] Is pt being admited?: Yes Does the pt Need Aspirin: No Condition: Stable Instructions: Shortness of Breath, Adult, [id number], Heart Failure, Self Care, Xauc-ix-Jgry, Nonspecific Chest Pain, Adult, Azak-no-Himn Time of Disposition: 17:45 Print Language: KOREAN
--- NOTE | 2021-08-14 18:12 | History and Physical Report ---
History of Present Illness Chief complaint: I am gaining weight and I am short of breath History of present illness: 56 YO Female with HTN, DM complicated by Neuropathy, Metabolic Syndrome presents to ED for evaluation. Patient reports "I am getting weak my chest hurts and I am short of breath. Patient states that over the past 1 week she has experienced shortness of breath, decreased exercise tolerance, dyspnea on exertion, dyspnea at rest, orthopnea, paroxysmal nocturnal dyspnea, and lower extremity edema. Patient also reports chest pain over the past 2 days. Patient states that pain is 9/10, constant, worsened with exertion, relieved with rest, substernal, crushing in nature, nonradiating, associated with shortness of breath. Patient transported to [facility] via private vehicle for further care and evaluation of the aforementioned symptoms. Patient acknowledges noncompliance with antihypertensive medication as well as 8 pound unintentional weight gain over the past 1 week. Patient was seen and evaluated in the emergency department. All lab and imaging studies reviewed. Patient found to have a blo od pressure of 165/71 mmHg which is consistent with accelerated hypertension as well as clinical symptoms consistent with angina, new onset congestive heart failure, cardiorenal syndrome, SIRS, hyponatremia, metabolic acidosis. Patient admitted to telemetry and initiated on ACS protocol as well as CHF protocol. Cardiology team consulted in ED. Patient denies fever, chills, productive cough, skin rash, recent contact, known exposure to COVID-19. Prior admission on 03/25/2013 reviewed. All medication listed at time of admission has been reconciled. Advanced care planning conducted in ED. Past History Past Medical History: diabetes, hypertension, other (See HPI) Past Surgical History: No surgical history, Other (Reviewed) Social history: single. denies: smoking, alcohol abuse, prescription drug abuse Family history: diabetes, hypertension Medications and Allergies Allergies Allergy/AdvReac Type Severity Reaction Status Date / Time No Known Allergies Allergy Verified 08/14/21 10:47 Home Medications Medication Instructions Recorded Confirmed Last Taken Type Ibuprofen [Motrin] 600 mg PO Q8H PRN #50 tablet 01/10/14 11/09/16 Unknown Rx Oxycodone HCl/Acetaminophen 1 each PO Q6HR PRN #20 tablet 01/10/14 11/09/16 Unknown Rx [Percocet 7.5-325 mg] HYDROcodone/APAP 5-325 [[place] 1 each PO Q6HR PRN #20 tablet 03/05/14 11/09/16 Unknown Rx 5-325 mg TAB] Lisinopril/Hydrochlorothiazide 1 tab PO QDAY #60 tablet 03/05/14 11/09/16 Unknown Rx [Zestoretic 20-25 mg] Gabapentin 300 mg PO BID #60 capsule 05/19/14 11/09/16 Unknown Rx Mineral Oil [Mineral Oil Heavy] 30 ml PO TID #1 oil 05/19/14 11/09/16 Unknown Rx methOCARBAMOL [Robaxin] 500 mg PO BID #14 tab 05/19/14 11/09/16 Unknown Rx polyethylene glycoL 3350 [Miralax] 17 gm PO DAILY #10 powder 05/19/14 11/09/16 Unknown Rx Amoxicillin/K Clav Tab [Augmentin 1 tab PO Q12HR #20 tab 08/19/15 11/09/16 Unknown Rx 875 mg] Ibuprofen [Motrin 600 MG tab] 600 mg PO Q8H PRN #30 tablet 08/19/15 11/09/16 Un known Rx guaiFENesin/CODEINE [Robitussin AC] 10 ml PO Q6HR PRN #180 ml 08/19/15 11/09/16 Unknown Rx Cyclobenzaprine HCl [Flexeril 5 MG 5 mg PO TID #20 tab 11/09/16 Unknown Rx TAB] Gabapentin 300 mg PO Q8HR #90 capsule 11/09/16 Unknown Rx Lisinopril/Hydrochlorothiazide 1 tab PO QDAY #30 tab 09/19/17 Unknown Rx [Zestoretic 20-25 mg] metFORMIN [Glucophage] 500 mg PO BID #60 tablet 09/19/17 Unknown Rx Lisinopril/Hydrochlorothiazide 1 tab PO QDAY #30 tab 10/13/18 Unknown Rx [Zestoretic 20-25 mg] metFORMIN [Glucophage] 500 mg PO BID #60 tablet 10/13/18 Unknown Rx Gabapentin 300 mg PO BID #60 cap 08/17/19 Unknown Rx Insulin Detemir (Nf) [Levemir 20 unit SQ QHS #5 pen 08/17/19 Unknown Rx Flextouch (Nf)] Lisinopril/Hydrochlorothiazide 1 tab PO QDAY #30 tab 08/17/19 Unknown Rx [Zestoretic 20-25 mg] metFORMIN [Glucophage] 500 mg PO BID #60 tablet 08/17/19 Unknown Rx Review of Systems Constitutional: weight gain, no weight loss, no fever, no chills Ears, nose, mouth and throat: no ear pain, no tinnitis, no decreased hearing, no nasal congestion, no nasal discharge Breasts: no swelling, no mass Cardiovascular: chest pain, orthopnea, shortness of breath, dyspnea on exertion, paroxysmal nocturnal dyspnea, high blood pressure, leg edema, decreased exercise tolerance Respiratory: no cough, no cough with sputum, no excessive sputum Gastrointestinal: no abdominal pain, no nausea, no vomiting, no diarrhea, no constipation Genitourinary Female: no pelvic pain, no flank pain, no dysuria, no urinary frequency, no urgency Rectal: no pain, no incontinence, no bleeding Musculoskeletal: no neck stiffness, no neck pain, no shooting arm pain, no redness of joints Integumentary: no rash, no pruritis, no sores, no wounds, no jaundice Neurological: no head injury, no paralysis, no parathesias, no numbness, no tingling, no syncope Psychiatric: no anxiety, no suicidal ideation, no disorientation, no hallucinations Endocrine: no cold intolerance, no polyphagia, no polyuria, no excessive sweating Hematologic/Lymphatic: no easy bruising, no easy bleeding Allergic/Immunologic: no wheezing Exam - Constitutional Vitals: Temp Pulse Resp BP Pulse Ox 98.5 F 82 16 165/71 96 08/14/21 14:03 08/14/21 14:03 08/14/21 14:03 08/14/21 14:03 08/14/21 14:03 General appearance: Present: mild distress - EENT Eyes: Present: PERRL ENT: hearing intact, clear oral mucosa - Neck Neck: Present: supple, normal ROM - Respiratory Respiratory effort: normal Respiratory: bilateral: CTA - Cardiovascular Heart Sounds: Present: S1 & S2. Absent: rub, click - Extremities Extremities: pulses symmetrical Extremity abnormal: edema Peripheral Pulses: within normal limits - Abdominal General gastrointestinal: Present: soft, non-tender, non-distended, normal bowel sounds Female genitourinary: Present: normal - Integumentary Integumentary: Present: clear, warm, dry - Musculoskeletal Musculoskeletal: gait normal, strength equal bilaterally - Psychiatric Psychiatric: appropriate mood/affect, intact judgment & insight - Neurologic Neurologic: CNII-XII intact, moves all extremities HEART Score - HEART Score Troponin: Troponin T < 0.010 ng/mL (0.00-0.029) 08/14/21 15:40 Results - Labs CBC & Chem 7: 08/14/21 10:48 08/14/21 10:48 Labs: Abnormal lab results 08/14/21 08/14/21 08/14/21 Range/Units 10:48 10:48 15:40 WBC 12.4 H (4.5-11.0) K/mm3 RBC 5.13 H (3.65-5.03) M/mm3 Hgb 16.8 H (10.1-14.3) gm/dl Hct 50.4 H (30.3-42.9) % MCV 98 H (79-97) fl MCH 33 H (28-32) pg Lymph % (Auto) 6.2 L (13.4-35.0) % [place] % (Auto) 8.3 H (0.0-7.3) % Lymph # (Auto) 0.8 L (1.2-5.4) K/mm3 [place] # (Auto) 1.0 H (0.0-0.8) K/mm3 Seg Neutrophils % 84.8 H (40.0-70.0) % Seg Neutrophils # 10.5 H (1.8-7.7) K/mm3 Sodium 132 L (137-145) mmol/L Carbon Dioxide 15 L (22-30) mmol/L Creatinine 1.7 H (0.6-1.2) mg/dL Glucose 239 H (65-100) mg/dL NT-Pro-B Natriuret Pep 47939 H (0-900) pg/mL Assessment and Plan - Patient Problems (1) New onset of congestive heart failure Current Visit: No Status: Acute Plan to address problem: CHF protocol: Strict I's/O, urine output every shift, daily weight, afterload reduction, blood pressure control, diuresis, thyroid panel, magnesium level, echocardiogram ordered and pending at time of admission. Cardiology team consulted. (2) Angina at rest Current Visit: Yes Status: Acute Plan to address problem: Serial cardiac enzymes, EKG, telemetry monitoring, morphine, suppmental oxygen, nitro, aspirin, further care and evaluation as per cardiology team. No EKG changes initial cardiac enzymes negative x2. (3) Cardiorenal syndrome Current Visit: Yes Status: Acute Qualifiers: Heart failure presence: with heart failure Plan to address problem: Nephrology team consulted, renal ultrasound, supportive care. BMP repeat in a.m. to monitor serum creatinine as well as GFR. (4) SIRS (systemic inflammatory response syndrome) Current Visit: Yes Status: Acute Plan to address problem: Empiric IV antibiotic therapy, CBC, chest x-ray, urinalysis, repeat CBC in a.m. (5) Hyponatremia syndrome Current Visit: Yes Status: Acute Plan to address problem: IV fluid resuscitation therapy as clinically indicated, BMP, repeat BMP in AM. (6) Metabolic acidosis Current Visit: Yes Status: Acute Plan to address problem: Supportive care, continue medical management. Repeat BMP in a.m. (7) Accelerated hypertension Current Visit: Yes Status: Acute Plan to address problem: Monitor blood pressure every shift, continue medical management. (8) Diabetes Current Visit: Yes Status: Acute Plan to address problem: Consistent carbohydrate diet, Accu-Chek, hypoglycemia protocol, insulin protocol. (9) DVT prophylaxis Current Visit: Yes Status: Acute Plan to address problem: SCDs bilateral lower extremities while in bed, prophylactic anticoagulation. (10) Advance care planning Current Visit: Yes Status: Acute Plan to address problem: Disease education data, care plan discussed, diagnoses discussed, prognosis discussed, patient is full code. Patient knowledges understanding agreement with care plan, +30 minutes. (11) Preventative health care Current Visit: Yes Status: Acute Plan to address problem: Patient counseled regarding risk factor reduction, low-sodium diet, medication compliance. Patient struck to follow-up with primary care physician for all age and risk factor appropriate screening test as outpatient. +30 minutes.
[2021-08-14] MEDS ORDERED: oxyCODONE /ACETAMINOPHEN 5-325MG TAB PO PRN (18:17)
[2021-08-14] MEDS ORDERED: ONDANSETRON 4 MG/2 ML INJ IV PRN (18:17)
[2021-08-14] MEDS ORDERED: ACETAMINOPHEN 325 MG TAB PO PRN ×2 (18:17)
[2021-08-14] MEDS ORDERED: MORPHINE 4 MG/1 ML INJ IV PRN (18:17)
[2021-08-14] MEDS ORDERED: NITROGLYCERIN 0.4 MG TAB SUBL SL PRN (18:17)
[2021-08-14] MEDS ORDERED: traMADol 50 MG TAB PO PRN (18:17)
[2021-08-14] MEDS ORDERED: cefTRIAXone/NS 2 GM/100 ML 2 GM/100 ML BAG IV ONE (18:27)
[2021-08-14] MEDS ORDERED: DEXTROSE 50% IN WATER (25GM) 50 ML SYRINGE IV PRN (18:29)
[2021-08-14] MEDS ORDERED: POLYETHYLENE GLYCOL 3350 17 GM POWDER PO PRN (18:32)
[2021-08-14] MEDS ORDERED: CYCLOBENZAPRINE 10 MG TAB PO SCH (19:00)
[2021-08-14 19:51] LABS: Free T4 (Free Thyroxine) 0.86 ng/dL (0.76-1.46)
[2021-08-14] MEDS ORDERED: MINERAL OIL PO SCH (20:00)
[2021-08-14] MEDS ORDERED: NON-FORMULARY EACH (Cyclobenzaprine Hcl [Flexeril 5 Mg Tab] 5 MG Tablet) PO SCH (20:00)
[2021-08-14] MEDS: CYCLOBENZAPRINE 10 MG TAB PO SCH (21:06)
[2021-08-14] MEDS: MINERAL OIL 30 ML ORAL LIQD PO SCH (21:07)
[2021-08-14] MEDS ORDERED: INSULIN REGULAR, HUMAN 100 UNITS/1 ML SUB-Q SCH (22:00)
[2021-08-14] MEDS: HEPARIN 5,000 UNIT/1 ML VIAL SUB-Q SCH (22:50)
[2021-08-14] MEDS: METOPROLOL TARTRATE 25 MG TAB PO SCH (23:05)
[2021-08-14] MEDS: GABAPENTIN 300 MG CAP PO SCH (23:07)
[2021-08-14] MEDS: LISINOPRIL 5 MG TAB PO SCH (23:39)
[2021-08-15] MEDS: INSULIN LISPRO 100 UNIT/ML SUB-Q SCH ×5 (00:17→22:01)
[2021-08-15] MEDS: CYCLOBENZAPRINE 10 MG TAB PO SCH ×3 (04:08→22:06)
[2021-08-15] MEDS ORDERED: FUROSEMIDE 20 MG/2 ML INJ IV SCH (06:00)
[2021-08-15] MEDS: METOPROLOL TARTRATE 25 MG TAB PO SCH ×2 (08:59→22:01)
[2021-08-15] MEDS: LISINOPRIL 5 MG TAB PO SCH (08:59)
[2021-08-15] MEDS: GABAPENTIN 300 MG CAP PO SCH ×2 (08:59→22:00)
[2021-08-15] MEDS: HEPARIN 5,000 UNIT/1 ML VIAL SUB-Q SCH ×2 (08:59→22:00)
[2021-08-15] MEDS: MINERAL OIL 30 ML ORAL LIQD PO SCH ×3 (09:02→22:00)
[2021-08-15] MEDS ORDERED: POLYETHYLENE GLYCOL 3350 17 GM POWDER PO PRN (10:00)
[2021-08-15] MEDS ORDERED: [UNRECOGNIZED DRUG - OTHER] PO SCH (10:00)
--- NOTE | 2021-08-15 10:25 | Consultation ---
History of Present Illness - Reason for Consult Consult date: 08/15/21 acute renal failure - History of Present Illness The patient is a 56 YO female with history notable for HTN, DM complicated by Neuropathy, Metabolic Syndrome and Medical non-compliance who presented to [facility] ED 08/14/21 with substernal chest pain of one week week duration. She also reports some shortness of breath and cough. Patient acknowledges noncompliance with medication and currently not following with any physician. Patient denies fever, chills, N, V, abd pain, dysuria, heamturia, skin rash, recent contact, known exposure to COVID-19. Patient admitted to telemetry and Cardiology consulted. Labs notable for Creat 1.7, Sodium 132 and bicarb 15. Nephrology consulted for further evaluation of STEVEN. Past History Past Medical History: diabetes, hypertension, other (See HPI) Past Surgical History: No surgical history, Other (Reviewed) Social history: single. denies: smoking, alcohol abuse, prescription drug abuse Family history: diabetes, hypertension Medications and Allergies Allergies Allergy/AdvReac Type Severity Reaction Status Date / Time No Known Allergies Allergy Verified 08/14/21 10:47 Home Medications Medication Instructions Recorded Confirmed Last Taken Type Ibuprofen [Motrin] 600 mg PO Q8H PRN #50 tablet 01/10/14 11/09/16 Unknown Rx Oxycodone HCl/Acetaminophen 1 each PO Q6HR PRN #20 tablet 01/10/14 11/09/16 Unknown Rx [Percocet 7.5-325 mg] HYDROcodone/APAP 5-325 [[place] 1 each PO Q6HR PRN #20 tablet 03/05/14 11/09/16 Unknown Rx 5-325 mg TAB] Lisinopril/Hydrochlorothiazide 1 tab PO QDAY #60 tablet 03/05/14 11/09/16 Unknown Rx [Zestoretic 20-25 mg] Gabapentin 300 mg PO BID #60 capsule 05/19/14 11/09/16 Unknown Rx Mineral Oil [Mineral Oil Heavy] 30 ml PO TID #1 oil 05/19/14 11/09/16 Unknown Rx methOCARBAMOL [Robaxin] 500 mg PO BID #14 tab 05/19/14 11/09/16 Unknown Rx polyethylene glycoL 3350 [Miralax] 17 gm PO DAILY #10 powder 05/19/14 11/09/16 U nknown Rx Amoxicillin/K Clav Tab [Augmentin 1 tab PO Q12HR #20 tab 08/19/15 11/09/16 Unknown Rx 875 mg] Ibuprofen [Motrin 600 MG tab] 600 mg PO Q8H PRN #30 tablet 08/19/15 11/09/16 Unknown Rx guaiFENesin/CODEINE [Robitussin AC] 10 ml PO Q6HR PRN #180 ml 08/19/15 11/09/16 Unknown Rx Cyclobenzaprine HCl [Flexeril 5 MG 5 mg PO TID #20 tab 11/09/16 Unknown Rx TAB] Gabapentin 300 mg PO Q8HR #90 capsule 11/09/16 Unknown Rx Lisinopril/Hydrochlorothiazide 1 tab PO QDAY #30 tab 09/19/17 Unknown Rx [Zestoretic 20-25 mg] metFORMIN [Glucophage] 500 mg PO BID #60 tablet 09/19/17 Unknown Rx Lisinopril/Hydrochlorothiazide 1 tab PO QDAY #30 tab 10/13/18 Unknown Rx [Zestoretic 20-25 mg] metFORMIN [Glucophage] 500 mg PO BID #60 tablet 10/13/18 Unknown Rx Gabapentin 300 mg PO BID #60 cap 08/17/19 Unknown Rx Insulin Detemir (Nf) [Levemir 20 unit SQ QHS #5 pen 08/17/19 Unknown Rx Flextouch (Nf)] Lisinopril/Hydrochlorothiazide 1 tab PO QDAY #30 tab 08/17/19 Unknown Rx [Zestoretic 20-25 mg] metFORMIN [Glucophage] 500 mg PO BID #60 tablet 08/17/19 Unknown Rx Active Meds: Active Medications Acetaminophen (Acetaminophen 325 Mg Tab) 650 mg PO Q6H PRN PRN Reason: Pain MILD(1-3)/Fever >100.5/PATHAK Albuterol (Albuterol 2.5 Mg/3 Ml Nebu) 2.5 mg IH Q4HRT PRN PRN Reason: Shortness Of Breath Cyclobenzaprine HCl (Cyclobenzaprine 10 Mg Tab) 5 mg PO Q8H BERTO Last Admin: 08/15/21 04:08 Dose: Not Given Dextrose (Dextrose 50% In Water (25gm) 50 Ml Syringe) 50 ml IV Q30MIN PRN; Protocol PRN Reason: Hypoglycemia Furosemide (Furosemide 20 Mg/2 Ml Inj) 20 mg IV BID@0600,1800 [facility] Last Admin: 08/15/21 06:22 Dose: 20 mg Gabapentin (Gabapentin 300 Mg Cap) 300 mg PO BID [facility] Last Admin: 08/15/21 08:59 Dose: 300 mg Heparin Sodium (Porcine) (Heparin 5,000 Unit/1 Ml Vial) 5,000 unit SUB-Q Q12HR [facility] Last Admin: 08/15/21 08:59 Dose: 5,000 unit Insulin Human Lispro (Insulin Lispro 100 Unit/Ml) 0 unit SUB-Q ACHS [facility]; Protocol Last Admin: 08/15/21 08:57 Dose: 6 unit Lisinopril (Lisinopril 5 Mg Tab) 2.5 mg PO BID [facility] Last Admin: 08/15/21 08:59 Dose: 2.5 mg Methocarbamol (Methocarbamol 500 Mg Tab) 500 mg PO BID [facility] Last Admin: 08/15/21 08:59 Dose: 500 mg Metoprolol Tartrate (Metoprolol Tartrate 25 Mg Tab) 12.5 mg PO BID [facility] Last Admin: 08/15/21 08:59 Dose: 12.5 mg Mineral Oil (Mineral Oil 30 Ml Oral Liqd) 30 ml PO TID [facility] Last Admin: 08/15/21 09:02 Dose: 30 ml Morphine Sulfate (Morphine 4 Mg/1 Ml Inj) 2 mg IV Q8H PRN PRN Reason: Pain , Severe (7-10) Nitroglycerin (Nitroglycerin 0.4 Mg Tab Subl) 0.4 mg SL Q5M PRN PRN Reason: Chest Pain Ondansetron HCl (Ondansetron 4 Mg/2 Ml Inj) 4 mg IV Q8H PRN PRN Reason: Nausea And Vomiting Oxycodone/Acetaminophen (Oxycodone /Acetaminophen 5-325mg Tab) 1 tab PO Q6H PRN PRN Reason: Pain, Moderate (4-6) Polyethylene Glycol (Polyethylene Glycol 3350 17 Gm Powder) 17 gm PO QDAY PRN PRN Reason: Constipation Pseudoephedrine/Acetam/Chlorphenir (Guaifenesin/Codeine 100-10mg Oral Liqd 5 Ml) 10 ml PO Q6HR PRN PRN Reason: Cough Sodium Chloride (Sodium Chloride 0.9% 10 Ml Flush Syringe) 10 ml IV BID [facility] Last Admin: 08/15/21 08:59 Dose: 10 ml Sodium Chloride (Sodium Chloride 0.9% 10 Ml Flush Syringe) 10 ml IV PRN PRN PRN Reason: LINE FLUSH Tramadol HCl (Tramadol 50 Mg Tab) 50 mg PO Q6H PRN PRN Reason: Pain, Moderate (4-6) Review of Systems All systems: negative Exam - Vital Signs Vital signs: Vital Signs Temp Pulse Resp BP Pulse Ox 99.4 F 88 20 153/69 95 08/14/21 10:42 08/14/21 10:42 08/14/21 10:42 08/14/21 10:42 08/14/21 10:42 Results - Lab Results 08/14/21 10:48 08/14/21 10:48 Most recent lab results Calcium 9.0 mg/dL (8.4-10.2) 08/14/21 10:48 Magnesium 1.60 mg/dL (1.7-2.3) L 08/14/21 18:50 Assessment and Plan 1. Acute kidney injury vs CKD: Suspect vasomotor STEVEN. Renal US suggestive of CKD. Urine studies ordered. Monitor renal function. Avoid nephrotoxic agents. Meds dosage based on GFR. 2. FEN: Hyponatremia, Sod. bicarb, monitor. Metabolic acidosis, Sod bicarb, monitor. Replete lytes as needed. Monitor lytes and volume status. 3. Atypical Chest pain: Seen by Cards. 4. Hypertension uncontrolled, POA: Monitor blood pressure. Adjust meds as needed. 5. DM-2, uncontrolled: SSI. Monitor. Compliance encouraged. Subjective: Patient was seen and examined at the bedside. Examination: General appearance: well-developed, appears stated age, no distress HEENT: ATNC, no icterus Neck: trachea midline Respiratory: Clear to auscultation Cardiology: regular, S1S2, no murmur Gastrointestinal: soft, normoactive bowel sounds, not tender Integumentary: no rash Neurologic: AO, able to move extremities Ext: no edema noted
--- NOTE | 2021-08-15 10:32 | Consultation ---
History of Present Illness Consult date: 08/15/21 Consult reason: chest pain History of present illness: The patient is a 56-year-old woman who presented to the hospital with complaints of several days of protracted coughing. Yesterday, she developed atypical, poorly characterized chest pain, which was aggravated by her coughing spells. There is no unusual shortness of breath, no palpitations, no anginal type symptoms. Past medical history is notable for chronic hypertension. There is no past cardiac history. A cardiac catheterization 6 years ago in this hospital demonst rated angiographically normal coronary arteries, normal left ventricular systolic function with ejection fraction 60 to 65%. ECG on this presentation was normal sinus rhythm, left ventricular hypertrophy, poor R wave progression, no acute ST or T wave changes. Chest x-ray showed normal-sized cardiac silhouette and clear lungs. Past History Past Medical History: diabetes, hypertension Past Surgical History: No surgical history, Other (Reviewed) Social history: single. denies: smoking, alcohol abuse, prescription drug abuse Family history: diabetes, hypertension Medications and Allergies Allergies Allergy/AdvReac Type Severity Reaction Status Date / Time No Known Allergies Allergy Verified 08/14/21 10:47 Home Medications Medication Instructions Recorded Confirmed Last Taken Type Ibuprofen [Motrin] 600 mg PO Q8H PRN #50 tablet 01/10/14 11/09/16 Unknown Rx Oxycodone HCl/Acetaminophen 1 each PO Q6HR PRN #20 tablet 01/10/14 11/09/16 Unknown Rx [Percocet 7.5-325 mg] HYDROcodone/APAP 5-325 [[place] 1 each PO Q6HR PRN #20 tablet 03/05/14 11/09/16 Unknown Rx 5-325 mg TAB] Lisinopril/Hydrochlorothiazide 1 tab PO QDAY #60 tablet 03/05/14 11/09/16 Unknown Rx [Zestoretic 20-25 mg] Gabapentin 300 mg PO BID #60 capsule 05/19/14 11/09/16 Unknown Rx Mineral Oil [Mineral Oil Heavy] 30 ml PO TID #1 oil 05/19/14 11/09/16 Unknown Rx methOCARBAMOL [Robaxin] 500 mg PO BID #14 tab 05/19/14 11/09/16 Unknown Rx polyethylene glycoL 3350 [Miralax] 17 gm PO DAILY #10 powder 05/19/14 11/09/16 Unknown Rx Amoxicillin/K Clav Tab [Augmentin 1 tab PO Q12HR #20 tab 08/19/15 11/09/16 Unknown Rx 875 mg] Ibuprofen [Motrin 600 MG tab] 600 mg PO Q8H PRN #30 tablet 08/19/15 11/09/16 Unknown Rx guaiFENesin/CODEINE [Robitussin AC] 10 ml PO Q6HR PRN #180 ml 08/19/15 11/09/16 Unknown Rx Cyclobenzaprine HCl [Flexeril 5 MG 5 mg PO TID #20 tab 11/09/16 Unknown Rx TAB] Gabapentin 300 mg PO Q8HR #90 capsule 11/09/16 Unknown Rx Lisinopril/Hydrochlorothiazide 1 tab PO QDAY #30 tab 09/19/17 Unknown Rx [Zestoretic 20-25 mg] metFORMIN [Glucophage] 500 mg PO BID #60 tablet 09/19/17 Unknown Rx Lisinopril/Hydrochlorothiazide 1 tab PO QDAY #30 tab 10/13/18 Unknown Rx [Zestoretic 20-25 mg] metFORMIN [Glucophage] 500 mg PO BID #60 tablet 10/13/18 Unknown Rx Gabapentin 300 mg PO BID #60 cap 08/17/19 Unknown Rx Insulin Detemir (Nf) [Levemir 20 unit SQ QHS #5 pen 08/17/19 Unknown Rx Flextouch (Nf)] Lisinopril/Hydrochlorothiazide 1 tab PO QDAY #30 tab 08/17/19 Unknown Rx [Zestoretic 20-25 mg] metFORMIN [Glucophage] 500 mg PO BID #60 tablet 08/17/19 Unknown Rx Active Meds: Active Medications Acetaminophen (Acetaminophen 325 Mg Tab) 650 mg PO Q6H PRN PRN Reason: Pain MILD(1-3)/Fever >100.5/PATHAK Albuterol (Albuterol 2.5 Mg/3 Ml Nebu) 2.5 mg IH Q4HRT PRN PRN Reason: Shortness Of Breath Cyclobenzaprine HCl (Cyclobenzaprine 10 Mg Tab) 5 mg PO Q8H BERTO Last Admin: 08/15/21 04:08 Dose: Not Given Dextrose (Dextrose 50% In Water (25gm) 50 Ml Syringe) 50 ml IV Q30MIN PRN; Protocol PRN Reason: Hypoglycemia Furosemide (Furosemide 20 Mg/2 Ml Inj) 20 mg IV BID@0600,1800 [facility] Last Admin: 08/15/21 06:22 Dose: 20 mg Gabapentin (Gabapentin 300 Mg Cap) 300 mg PO BID [facility] Last Admin: 08/15/21 08:59 Dose: 300 mg Heparin Sodium (Porcine) (Heparin 5,000 Unit/1 Ml Vial) 5,000 unit SUB-Q Q12HR [facility] Last Admin: 08/15/21 08:59 Dose: 5,000 unit Insulin Human Lispro (Insulin Lispro 100 Unit/Ml) 0 unit SUB-Q ACHS [facility]; Protocol Last Admin: 08/15/21 08:57 Dose: 6 unit Lisinopril (Lisinopril 5 Mg Tab) 2.5 mg PO BID [facility] Last Admin: 08/15/21 08:59 Dose: 2.5 mg Methocarbamol (Methocarbamol 500 Mg Tab) 500 mg PO BID [facility] Last Admin: 08/15/21 08:59 Dose: 500 mg Metoprolol Tartrate (Metoprolol Tartrate 25 Mg Tab) 12.5 mg PO BID [facility] Last Admin: 08/15/21 08:59 Dose: 12.5 mg Mineral Oil (Mineral Oil 30 Ml Oral Liqd) 30 ml PO TID [facility] Last Admin: 08/15/21 09:02 Dose: 30 ml Morphine Sulfate (Morphine 4 Mg/1 Ml Inj) 2 mg IV Q8H PRN PRN Reason: Pain , Severe (7-10) Nitroglycerin (Nitroglycerin 0.4 Mg Tab Subl) 0.4 mg SL Q5M PRN PRN Reason: Chest Pain Ondansetron HCl (Ondansetron 4 Mg/2 Ml Inj) 4 mg IV Q8H PRN PRN Reason: Nausea And Vomiting Oxycodone/Acetaminophen (Oxycodone /Acetaminophen 5-325mg Tab) 1 tab PO Q6H PRN PRN Reason: Pain, Moderate (4-6) Polyethylene Glycol (Polyethylene Glycol 3350 17 Gm Powder) 17 gm PO QDAY PRN PRN Reason: Constipation Pseudoephedrine/Acetam/Chlorphenir (Guaifenesin/Codeine 100-10mg Oral Liqd 5 Ml) 10 ml PO Q6HR PRN PRN Reason: Cough Sodium Chloride (Sodium Chloride 0.9% 10 Ml Flush Syringe) 10 ml IV BID [facility] Last Admin: 08/15/21 08:59 Dose: 10 ml Sodium Chloride (Sodium Chloride 0.9% 10 Ml Flush Syringe) 10 ml IV PRN PRN PRN Reason: LINE FLUSH Tramadol HCl (Tramadol 50 Mg Tab) 50 mg PO Q6H PRN PRN Reason: Pain, Moderate (4-6) Review of Systems Cardiovascular: chest pain, shortness of breath, no orthopnea, no palpitations, no rapid/irregular heart beat, no edema, no syncope, no lightheadedness Physical Examination Vital Signs Temp Pulse Resp BP Pulse Ox 99.4 F 88 20 153/69 95 08/14/21 10:42 08/14/21 10:42 08/14/21 10:42 08/14/21 10:42 08/14/21 10:42 General appearance: no acute distress HEENT: Positive: PERRL Neck: Positive: neck supple Cardiac: Positive: Reg Rate and Rhythm Lungs: Positive: clear to auscultation Neuro: Positive: Grossly Intact Abdomen: Positive: Soft Female genitourinary: deferred Skin: Positive: Clear Extremities: Absent: edema Results 08/14/21 10:48 08/14/21 10:48 Cardiac Enzymes 08/14/21 Range/Units 10:48 AST 21 (5-40) units/L Coagulation 08/14/21 Range/Units 10:48 PT 14.4 (12.2-14.9) Sec. INR 1.01 (0.87-1.13) APTT 31.8 (24.2-36.6) Sec. CBC 08/14/21 Range/Units 10:48 WBC 12.4 H (4.5-11.0) K/mm3 RBC 5.13 H (3.65-5.03) M/mm3 Hgb 16.8 H (10.1-14.3) gm/dl Hct 50.4 H (30.3-42.9) % Plt Count 169 (140-440) K/mm3 Lymph # (Auto) 0.8 L (1.2-5.4) K/mm3 [place] # (Auto) 1.0 H (0.0-0.8) K/mm3 Eos # (Auto) 0.0 (0.0-0.4) K/mm3 Baso # (Auto) 0.1 (0.0-0.1) K/mm3 Comprehensive Metabolic Panel 08/14/21 Range/Units 10:48 Sodium 132 L (137-145) mmol/L Potassium 3.6 (3.6-5.0) mmol/L Chloride 99.8 (98-107) mmol/L Carbon Dioxide 15 L (22-30) mmol/L BUN 17 (7-17) mg/dL Creatinine 1.7 H (0.6-1.2) mg/dL Glucose 239 H (65-100) mg/dL Calcium 9.0 (8.4-10.2) mg/dL AST 21 (5-40) units/L ALT 15 (7-56) units/L Alkaline Phosphatase 94 (35-129) units/L Total Protein 7.2 (6.3-8.2) g/dL Albumin 3.9 (3.9-5) g/dL EKG interpretations - EKG Sinus rhythms and dysrhythmias: sinus rhythm (With left ventricle hypertrophy, no acute ST or T wave changes) Assessment and Plan - Patient Problems (1) Atypical chest pain Current Visit: Yes Status: Acute Plan to address problem: Patient presents with protracted cough over 4 days, which has resulted in nonspecific, musculoskeletal type chest pain aggravated by continued coughing. An echocardiogram was ordered by the medical service, which will be reviewed, otherwise no indication for further cardiac work-up at this time. We will defer to internal medicine and pulmonary for further evaluation and management of the patient's presenting cough and upper respiratory tract infection.
--- NOTE | 2021-08-15 11:42 | Ultrasound Report ---
ULTRASOUND RENAL INDICATION / CLINICAL INFORMATION: cardiorenal syndrome. COMPARISON: None available. FINDINGS: RIGHT KIDNEY: Length = 9.2 cm. - Echogenicity: Mildly echogenic. - Parenchymal Thickness: Mild thinning. - Hydronephrosis: None. - Cyst / Mass: None. - Stones: None seen. LEFT KIDNEY: Length = 9.8 cm. - Echogenicity: Mildly echogenic. - Parenchymal Thickness: Normal. - Hydronephrosis: None. - Cyst / Mass: None. - Stones: None seen. URINARY BLADDER: No significant abnormality. FREE FLUID: None. ADDITIONAL FINDINGS: None. IMPRESSION: 1. The kidneys are mildly echogenic with parenchymal thinning noted on the right suggesting medical r enal disease bilaterally. Scribed by: Steffanie Chen RDMS, DIAZ, XIOMARA Scribed: 08/15/2021 10:27 AM I have reviewed the images, agree with this report, and edited this report as needed. Signer Name: Neil Mckeon MD Signed: 08/15/2021 11:38 AM Workstation Name: [email or web address]
--- NOTE | 2021-08-15 13:47 | Electrocardiograph Report ---
[facility] Test Date: 2021-08-14 Test Time: 10:24:04 Pat Name: HODA JACKSON Department: Room: A477 1 Gender: F Chief Solution Architect: NURSE : 1965 Requested By: SUZETTE DURANT Order Number: [id number] Reading MD: Nik العراقي Measurements Intervals [place] Rate: 90 P: [place]: QRS: 63 QRSD: 98 T: 99 QT: 395 QTc: 483 Interpretive Statements Sinus rhythm Consider old anteroseptal infarct Nonspecific T abnormalities, lateral leads No previous ECG available for comparison Electronically Signed On 08-15-2021 13:47:08 EDT by Nik العراقي
--- NOTE | 2021-08-15 13:50 | Electrocardiograph Report ---
[facility] Test Date: 2021-08-14 Test Time: 18:00:39 Pat Name: HODA JACKSON Department: Room: A477 1 Gender: F Gage Maker: DAYANNA : 1965 Requested By: OEBD CAPPS Order Number: [id number] Reading MD: Nik العراقي Measurements Intervals [place] Rate: 97 P: 76 [place]: 168 QRS: 83 QRSD: 98 T: 77 QT: 392 QTc: 499 Interpretive Statements Sinus rhythm BLANCA, consider biatrial enlargement Anterior infarct, old Compared to ECG 08/14/2021 10:24:04 No significant change Electronically Signed On 08-15-2021 13:50:17 EDT by Nik العراقي
--- NOTE | 2021-08-15 13:55 | Electrocardiograph Report ---
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
[2021-08-15 19:03] LABS: Calcium 8.9 mg/dL (8.4-10.2)
[2021-08-15 20:46] LABS: Bilirubin,Urine NEG (Negative); Blood,Urine SM (Negative); Color,Urine Yellow (Yellow); Urobilinogen,Urine < 2.0 mg/dL (<2.0)
[2021-08-15 20:51] LABS: Hyaline Casts,Urine 12 /LPF; Mucus,Urine FEW /HPF
[2021-08-15] MEDS: ALBUTEROL 2.5 MG/3 ML NEBU IH PRN (20:51)
[2021-08-15 20:52] LABS: Protein,Urine >500 mg/dL (Negative)
[2021-08-15 20:55] LABS: Creatinine,Urine 158.1 mg/dL (0.1-20.0)
[2021-08-15 21:43] LABS: Protein/Creatinine Ratio,Urine 2.05
[2021-08-15] MEDS: SODIUM BICARBONATE 650 MG TAB PO SCH (22:01)
--- NOTE | 2021-08-16 02:16 | Progress Note ---
Assessment and Plan Assessment and Plan - Patient Problems (1) New onset of congestive heart failure Current Visit: No Status: Acute Plan to address problem: CHF protocol: Strict I's/O, urine output every shift, daily weight, afterload reduction, blood pressure control, diuresis, thyroid panel, magnesium level, echocardiogram shows ejection fraction 40 to 45% Systolic dysfunction Left-ventricular hypertrophy Patient is most symptomatically better compared to yesterday Possible discharge tomorrow electrolytes Lasix Cardiology consult appreciated Follow-up with [facility] as outpatient (2) Angina at rest Current Visit: Yes Status: Acute Plan to address problem: Cardiac enzymes normal (3) STEVEN Secondary to diuretics and vasomotor nephropathy Defer to nephrology (4) SIRS (systemic inflammatory response syndrome) Current Visit: Yes Status: Acute Plan to address problem: Empiric IV antibiotic therapy, CBC, chest x-ray, urinalysis, repeat CBC in a.m. (5) Hyponatremia syndrome Current Visit: Yes Status: Acute Plan to address problem: IV fluid resuscitation therapy as clinically indicated, BMP, repeat BMP in AM. (6) Metabolic acidosis Current Visit: Yes Status: Acute Plan to address problem: Supportive care, continue medical management. Repeat BMP in a.m. (7) Accelerated hypertension Current Visit: Yes Status: Acute Plan to address problem: Monitor blood pressure every shift, continue medical management. (8) Diabetes Current Visit: Yes Status: Acute Plan to address problem: Consistent carbohydrate diet, Accu-Chek, hypoglycemia protocol, insulin protocol. (9) DVT prophylaxis Current Visit: Yes Status: Acute Plan to address problem: SCDs bilateral lower extremities while in bed, prophylactic anticoagulation. (10) Advance care planning Current Visit: Yes Status: Acute Plan to address problem: Disease education data, care plan discussed, diagnoses discussed, prognosis discussed, patient is full code. Patient knowledges understanding agreement with care plan, +30 minutes. (11) Preventative health care Current Visit: Yes Status: Acute Plan to address problem: Patient counseled regarding risk factor reduction, low-sodium diet, medication compliance. Patient struck to follow-up with primary care physician for all age and risk factor appropriate screening test as outpatient. +30 minutes. Subjective Date of service: 08/15/21 Principal diagnosis: CHF exacerbation Interval history: 56 YO Female with HTN, DM complicated by Neuropathy, Metabolic Syndrome presents to ED for evaluation. Patient reports "I am getting weak my chest hurts and I am short of breath. Patient states that over the past 1 week she has experienced shortness of breath, decreased exercise tolerance, dyspnea on exertion, dyspnea at rest, orthopnea, paroxysmal nocturnal dyspnea, and lower extremity edema. Patient also reports chest pain over the past 2 days. Patient states that pain is 9/10, constant, worsened with exertion, relieved with rest, substernal, crushing in nature, nonradiating, associated with shortness of br eath. Patient transported to [facility] via private vehicle for further care and evaluation of the aforementioned symptoms. Patient acknowledges noncompliance with antihypertensive medication as well as 8 pound unintentional weight gain over the past 1 week. Patient was seen and evaluated in the emergency department. All lab and imaging studies reviewed. Patient found to have a blood pressure of 165/71 mmHg which is consistent with accelerated hypertension as well as clinical symptoms consistent with angina, new onset congestive heart failure, cardiorenal syndrome, SIRS, hyponatremia, metabolic acidosis. Patient admitted to telemetry and initiated on ACS protocol as well as CHF protocol. Cardiology team consulted in ED. Patient denies fever, chills, productive cough, skin rash, recent contact, known exposure to COVID-19. Prior admission on 03/25/2013 reviewed. All medication listed at time of admission has been reconciled. Advanced care planning conducted in ED. 08/15/2021 Shortness of breath is better Able to lie flat Objective - Constitutional Vitals: Vital Signs - 12hr 08/15/21 08/15/21 08/15/21 16:08 19:17 20:16 Temperature 98.6 F 98.4 F Pulse Rate 77 81 81 Pulse Rate [ Bilateral] Respiratory 18 16 Rate Respiratory Rate [Bilateral ] Blood Pressure 143/77 135/69 O2 Sat by Pulse 96 94 Oximetry 08/15/21 08/15/21 08/15/21 20:28 20:53 21:02 Temperature Pulse Rate Pulse Rate [ 75 Bilateral] Respiratory Rate Respiratory 18 Rate [Bilateral ] Blood Pressure O2 Sat by Pulse 97 98 Oximetry 08/15/21 08/15/21 21:03 23:47 Temperature 98.8 F Pulse Rate 79 Pulse Rate [ Bilateral] Respiratory 18 Rate Respiratory Rate [Bilateral ] Blood Pressure 140/71 O2 Sat by Pulse 98 98 Oximetry General appearance: Present: no acute distress, well-nourished - EENT Eyes: PERRL, EOM intact ENT: hearing intact, clear oral mucosa Ears: bilateral: normal - Neck Neck: supple, normal ROM - Respiratory Respiratory effort: normal Respiratory: bilateral: CTA - Breasts Breasts: normal - Cardiovascular Heart rate: 78 Rhythm: regular Heart Sounds: Present: S1 & S2. Absent: gallop, rub Extremities: pulses intact, No edema, normal color, Full ROM - Gastrointestinal General gastrointestinal: Present: soft, non-tender, non-distended, normal bowel sounds - Genitourinary Female genitourinary: normal - Integumentary Integumentary: clear, warm, dry - Musculoskeletal Musculoskeletal: 1, strength equal bilaterally - Neurologic Neurologic: moves all extremities - Psychiatric Psychiatric: memory intact, appropriate mood/affect, intact judgment & insight - Labs CBC & Chem 7: 08/14/21 10:48 08/15/21 10:51 Labs: Abnormal lab results 08/14/21 08/15/21 08/15/21 Range/Units 18:22 07:45 10:51 Sodium 130 L (137-145) mmol/L Chloride 96.8 L (98-107) mmol/L Carbon Dioxide 21 L (22-30) mmol/L BUN 37 H (7-17) mg/dL Creatinine 1.8 H (0.6-1.2) mg/dL Glucose 184 H (65-100) mg/dL POC Glucose 287 H (70-105) mg/dL Urine WBC (Auto) (0.0-6.0) /HPF Urine Creatinine (0.1-20.0) mg/dL Urine Total Protein 308 H (5-11.8) mg/dL 08/15/21 08/15/21 08/15/21 Range/Units 11:41 17:00 18:22 Sodium (137-145) mmol/L Chloride (98-107) mmol/L Carbon Dioxide (22-30) mmol/L BUN (7-17) mg/dL Creatinine (0.6-1.2) mg/dL Glucose (65-100) mg/dL POC Glucose 258 H 127 H (70-105) mg/dL Urine WBC (Auto) 13.0 H (0.0-6.0) /HPF Urine Creatinine (0.1-20.0) mg/dL Urine Total Protein (5-11.8) mg/dL 08/15/21 08/15/21 Range/Units 18:22 19:57 Sodium (137-145) mmol/L Chloride (98-107) mmol/L Carbon Dioxide (22-30) mmol/L BUN (7-17) mg/dL Creatinine (0.6-1.2) mg/dL Glucose (65-100) mg/dL POC Glucose 306 H (70-105) mg/dL Urine WBC (Auto) (0.0-6.0) /HPF Urine Creatinine 158.1 H (0.1-20.0) mg/dL Urine Total Protein 324 H (5-11.8) mg/dL Echocardiogram LV ejection fraction 40 to 41% Mildly dilated left ventricular systolic function is mildly decreased Borderline concentric left ventricular hypertrophy Pulmonic valve trace pulmonic regurgitation Mitral valve mild mitral regurgitation Aortic valve no aortic regurgitation - Imaging and cardiology EKG: report reviewed HEART Score - HEART Score Troponin: Troponin T < 0.010 ng/mL (0.00-0.029) 08/15/21 04:22
[2021-08-16] MEDS: CYCLOBENZAPRINE 10 MG TAB PO SCH (05:08)
[2021-08-16] MEDS: guaiFENesin/CODEINE 100-10MG ORAL LIQD 5 ML PO PRN ×2 (05:12→10:57)
[2021-08-16 05:39] LABS: Calcium 8.6 mg/dL (8.4-10.2)
[2021-08-16] MEDS: INSULIN LISPRO 100 UNIT/ML SUB-Q SCH ×2 (07:44→11:45)
--- NOTE | 2021-08-16 09:45 | Progress Note ---
Assessment and Plan 1. Unspecified cardiomyopathy with LV ejection fraction 40 to 45%. 2. Abnormal resting EKG 3. Type 2 diabetes mellitus 4. Chronic kidney disease unspecified 5. Essential hypertension Plan. Patient is currently stable further cardiac work-up to rule out underlying ischemic coronary artery disease with a Lexiscan MPI. Check TSH levels. Change metoprolol to Coreg and start patient on BiDil Subjective Date of service: 08/16/21 Principal diagnosis: CHF exacerbation Interval history: No cardiac symptoms Objective Vital Signs Temp Pulse Pulse Resp Resp BP Pulse Ox 08/16/21 09:00 98 08/16/21 08:57 96 08/16/21 08:07 67 122/59 98 08/15/21 23:47 98.8 F 79 18 140/71 98 08/15/21 21:03 98 08/15/21 21:02 98 08/15/21 20:53 75 18 08/15/21 20:28 97 08/15/21 20:16 81 08/15/21 19:17 98.4 F 81 16 135/69 94 08/15/21 16:08 98.6 F 77 18 143/77 96 08/15/21 14:02 96 - Physical Examination General: Appears Well, No Apparent Distress HEENT: Positive: PERRL, Mucus Membranes Moist Neck: Positive: neck supple, trachea midline. Negative: JVD/HJR Cardiac: Positive: Regular Rate, S1/S2, PMI, Laterally Displaced. Negative: S3, S4 Lungs: Positive: clear to auscultation, No Wheeze, Rales, Rhonchi Neuro: Positive: Grossly Intact Abdomen: Positive: Soft Skin: Positive: Clear Extremities: Absent: edema - Labs and Meds Comprehensive Metabolic Panel 08/15/21 08/16/21 Range/Units 10:51 04:44 Sodium 130 L 135 L (137-145) mmol/L Potassium 4.3 3.9 (3.6-5.0) mmol/L Chloride 96.8 L 100.6 (98-107) mmol/L Carbon Dioxide 21 L 21 L (22-30) mmol/L BUN 37 H 37 H (7-17) mg/dL Creatinine 1.8 H 1.8 H (0.6-1.2) mg/dL Glucose 184 H 193 H (65-100) mg/dL Calcium 8.9 8.6 (8.4-10.2) mg/dL - Imaging and Cardiology EKG: report reviewed - EKG Sinus rhythms and dysrhythmias: sinus rhythm (With left ventricle hypertrophy, no acute ST or T wave changes)
[2021-08-16] MEDS ORDERED: ASPIRIN 81 MG TAB CHEW PO SCH (10:00)
[2021-08-16] MEDS ORDERED: carvediloL 6.25 MG TAB PO SCH (10:00)
[2021-08-16] MEDS: MINERAL OIL 30 ML ORAL LIQD PO SCH (10:45)
[2021-08-16] MEDS: SODIUM BICARBONATE 650 MG TAB PO SCH (10:46)
[2021-08-16] MEDS: GABAPENTIN 300 MG CAP PO SCH (10:46)
[2021-08-16] MEDS: HEPARIN 5,000 UNIT/1 ML VIAL SUB-Q SCH (10:47)
[2021-08-16] MEDS ORDERED: FUROSEMIDE 40 MG/4 ML INJ IV SCH (10:47)
--- NOTE | 2021-08-16 11:47 | Progress Note ---
Assessment and Plan 1. Acute kidney injury vs CKD: Suspect vasomotor STEVEN. Renal US suggestive of CKD. Urine studies ordered. Monitor renal function. Avoid nephrotoxic agents. Meds dosage based on GFR. 2. FEN: Hyponatremia, Sod. bicarb, monitor. Metabolic acidosis, Sod bicarb, monitor. Replete lytes as needed. Monitor lytes and volume status. 3. Atypical Chest pain: Seen by Cards. 4. Hypertension uncontrolled, POA: Monitor blood pressure. Adjust meds as needed. 5. DM-2, uncontrolled: SSI. Monitor. Compliance encouraged. Subjective: Patient was seen and examined at the bedside. Examination: General appearance: well-developed, appears stated age, no distress HEENT: ATNC, no icterus Neck: trachea midline Respiratory: Clear to auscultation Cardiology: regular, S1S2, no murmur Gastrointestinal: soft, normoactive bowel sounds, not tender Integumentary: no rash Neurologic: AO, able to move extremities Ext: no edema noted Subjective Date of service: 08/16/21 Principal diagnosis: CHF exacerbation Objective - Vital Signs Vital signs: Vital Signs - 12hr 08/15/21 08/16/21 08/16/21 23:47 08:07 08:57 Temperature 98.8 F Pulse Rate 79 67 Respiratory 18 Rate Blood Pressure 140/71 122/59 O2 Sat by Pulse 98 98 96 Oximetry 08/16/21 09:00 Temperature Pulse Rate Respiratory Rate Blood Pressure O2 Sat by Pulse 98 Oximetry - Lab 08/14/21 10:48 08/16/21 04:44 Most recent lab results Calcium 8.6 mg/dL (8.4-10.2) 08/16/21 04:44 Magnesium 1.90 mg/dL (1.7-2.3) 08/15/21 10:51 Urine Creatinine 158.1 mg/dL (0.1-20.0) H 08/15/21 18:22 Urine Sodium 24 mmol/L 08/15/21 18:22 Urine Total Protein 324 mg/dL (5-11.8) H 08/15/21 18:22 Medications & Allergies - Medications Allergies/Adverse Reactions: Allergies No Known Allergies Allergy (Verified 08/14/21 10:47) Home Medications: Home Medications Medication Instructions Recorded Confirmed Last Taken Type Ibuprofen [Motrin] 600 mg PO Q8H PRN #50 tablet 01/10/14 11/09/16 Unknown Rx Oxycodone HCl/Acetaminophen 1 each PO Q6HR PRN #20 tablet 01/10/14 11/09/16 Unkn own Rx [Percocet 7.5-325 mg] HYDROcodone/APAP 5-325 [[place] 1 each PO Q6HR PRN #20 tablet 03/05/14 11/09/16 Unknown Rx 5-325 mg TAB] Lisinopril/Hydrochlorothiazide 1 tab PO QDAY #60 tablet 03/05/14 11/09/16 Unknown Rx [Zestoretic 20-25 mg] Gabapentin 300 mg PO BID #60 capsule 05/19/14 11/09/16 Unknown Rx Mineral Oil [Mineral Oil Heavy] 30 ml PO TID #1 oil 05/19/14 11/09/16 Unknown Rx methOCARBAMOL [Robaxin] 500 mg PO BID #14 tab 05/19/14 11/09/16 Unknown Rx polyethylene glycoL 3350 [Miralax] 17 gm PO DAILY #10 powder 05/19/14 11/09/16 Unknown Rx Amoxicillin/K Clav Tab [Augmentin 1 tab PO Q12HR #20 tab 08/19/15 11/09/16 Unknown Rx 875 mg] Ibuprofen [Motrin 600 MG tab] 600 mg PO Q8H PRN #30 tablet 08/19/15 11/09/16 Unknown Rx guaiFENesin/CODEINE [Robitussin AC] 10 ml PO Q6HR PRN #180 ml 08/19/15 11/09/16 Unknown Rx Cyclobenzaprine HCl [Flexeril 5 MG 5 mg PO TID #20 tab 11/09/16 Unknown Rx TAB] Gabapentin 300 mg PO Q8HR #90 capsule 11/09/16 Unknown Rx Lisinopril/Hydrochlorothiazide 1 tab PO QDAY #30 tab 09/19/17 Unknown Rx [Zestoretic 20-25 mg] metFORMIN [Glucophage] 500 mg PO BID #60 tablet 09/19/17 Unknown Rx Lisinopril/Hydrochlorothiazide 1 tab PO QDAY #30 tab 10/13/18 Unknown Rx [Zestoretic 20-25 mg] metFORMIN [Glucophage] 500 mg PO BID #60 tablet 10/13/18 Unknown Rx Gabapentin 300 mg PO BID #60 cap 08/17/19 Unknown Rx Insulin Detemir (Nf) [Levemir 20 unit SQ QHS #5 pen 08/17/19 Unknown Rx Flextouch (Nf)] Lisinopril/Hydrochlorothiazide 1 tab PO QDAY #30 tab 08/17/19 Unknown Rx [Zestoretic 20-25 mg] metFORMIN [Glucophage] 500 mg PO BID #60 tablet 08/17/19 Unknown Rx Active Medications: Generic Name Dose Route Start Last Admin Trade Name Freq PRN Reason Stop Dose Admin Acetaminophen 650 mg 08/14/21 18:17 Acetaminophen 325 Mg Tab PO Q6H PRN Pain MILD(1-3)/Fever >100.5/PATHAK Albuterol 2.5 mg 08/14/21 18:17 08/15/21 20:51 Albuterol 2.5 Mg/3 Ml Nebu IH 2.5 mg Q4HRT PRN Administration Shortness Of Breath Aspirin 81 mg 08/16/21 10:00 08/16/21 10:47 Aspirin 81 Mg Tab Chew PO 81 mg QDAY BERTO Administration Carvedilol 6.25 mg 08/16/21 10:00 08/16/21 10:47 Carvedilol 6.25 Mg Tab PO 6.25 mg BID BERTO Administration Cyclobenzaprine HCl 5 mg 08/14/21 20:00 08/16/21 05:08 Cyclobenzaprine 10 Mg Tab PO 5 mg Q8H BERTO Administration Dextrose 50 ml 08/14/21 18:29 Dextrose 50% In Water (25gm) 50 Ml Syringe IV Q30MIN PRN Hypoglycemia Protocol Furosemide 20 mg 08/16/21 10:47 08/16/21 11:45 Furosemide 40 Mg/4 Ml Inj IV 08/16/21 23:00 20 mg ONCE BERTO Administration Gabapentin 300 mg 08/14/21 22:00 08/16/21 10:46 Gabapentin 300 Mg Cap PO 300 mg BID BERTO Administration Heparin Sodium (Porcine) 5,000 unit 08/14/21 22:00 08/16/21 10:47 Heparin 5,000 Unit/1 Ml Vial SUB-Q 5,000 unit Q12HR BERTO Administration Insulin Human Lispro 0 unit 08/15/21 07:30 08/16/21 11:45 Insulin Lispro 100 Unit/Ml SUB-Q 3 unit ACHS BERTO Administration Protocol Isosorbide Dinitrate/Hydralazine 1 each 08/16/21 14:00 Isosorb Dinit/Hydralazine 20-37.5mg Tab PO Q8HR BERTO Methocarbamol 500 mg 08/14/21 22:00 08/16/21 10:46 Methocarbamol 500 Mg Tab PO 500 mg BID BERTO Administration Mineral Oil 30 ml 08/14/21 20:00 08/16/21 10:45 Mineral Oil 30 Ml Oral Liqd PO Not Given TID BERTO Morphine Sulfate 2 mg 08/14/21 18:17 Morphine 4 Mg/1 Ml Inj IV Q8H PRN Pain , Severe (7-10) Nitroglycerin 0.4 mg 08/14/21 18:17 Nitroglycerin 0.4 Mg Tab Subl SL Q5M PRN Chest Pain Ondansetron HCl 4 mg 08/14/21 18:17 Ondansetron 4 Mg/2 Ml Inj IV Q8H PRN Nausea And Vomiting Oxycodone/Acetaminophen 1 tab 08/14/21 18:17 Oxycodone /Acetaminophen 5-325mg Tab PO Q6H PRN Pain, Moderate (4-6) Polyethylene Glycol 17 gm 08/15/21 10:00 Polyethylene Glycol 3350 17 Gm Powder PO QDAY PRN Constipation Pseudoephedrine/Acetam/Chlorphenir 10 ml 08/14/21 18:22 08/16/21 10:57 Guaifenesin/Codeine 100-10mg Oral Liqd 5 Ml PO 10 ml Q6HR PRN Administration Cough Sodium Bicarbonate 650 mg 08/15/21 20:00 08/16/21 10:46 Sodium Bicarbonate 650 Mg Tab PO 650 mg TID BERTO Administration Sodium Chloride 10 ml 08/14/21 22:00 08/16/21 10:47 Sodium Chloride 0.9% 10 Ml Flush Syringe IV 10 ml BID BERTO Administration Sodium Chloride 10 ml 08/14/21 18:17 Sodium Chloride 0.9% 10 Ml Flush Syringe IV PRN PRN LINE FLUSH Tramadol HCl 50 mg 08/14/21 18:17 Tramadol 50 Mg Tab PO Q6H PRN Pain, Moderate (4-6)
--- NOTE | 2021-08-16 12:07 | Discharge Summary ---
Providers - Providers Date of Admission: 08/14/21 18:17 Date of discharge: 08/16/21 Attending physician: MARIO SMITH MD 08/14/21 Consult to Cardiac Rehabilitation [CONS] Routine Reason For Exam: Phase I 08/14/21 18:17 Consult to Cardiology [CONS] Routine Consulting Provider: HUSSEIN JAMES Reason For Exam: chf, angina 08/14/21 18:34 Consult to Physician [CONS] Routine Comment: Consulting Provider: DAVY SANDOVAL Physician Instructions: Reason For Exam: cardiorenal syndrome Primary care physician: ANNAMARIA GUERRA Hospitalization Reason for admission: Newly diagnosed systolic heart failure, STEVEN, hyponatremia Condition: Stable Pertinent studies: Reviewed. Procedures: None. Hospital course: 56 YO Female with HTN, DM complicated by Neuropathy, Metabolic Syndrome presents to ED for evaluation. Patient reports "I am getting weak my chest hurts and I am short of breath. Patient states that over the past 1 week she has experienced shortness of breath, decreased exercise tolerance, dyspnea on exertion, dyspnea at rest, orthopnea, paroxysmal nocturnal dyspnea, and lower extremity edema. Patient also reports chest pain over the past 2 days. Patient states that pain is 9/10, constant, worsened with exertion, relieved with rest, substernal, crushing in nature, nonradiating, associated with shortness of breath. Patient transported to [facility] via private vehicle for further care and evaluation of the aforementioned symptoms. Patient acknowledges noncompliance with antihypertensive medication as well as 8 pound unintentional weight gain over the past 1 week. Patient was seen and evaluated in the emergency depart ment. All lab and imaging studies reviewed. Patient found to have a blood pressure of 165/71 mmHg which is consistent with accelerated hypertension as well as clinical symptoms consistent with angina, new onset congestive heart failure, cardiorenal syndrome, SIRS, hyponatremia, metabolic acidosis. Patient admitted to telemetry and initiated on ACS protocol as well as CHF protocol. Cardiology team consulted in ED. Patient denies fever, chills, productive cough, skin rash, recent contact, known exposure to COVID-19. Cardiology was consulted, and the patient underwent medical management for heart failure exacerbation. TTE revealed an EF 40-45% with mildly dilated LV, mildly decreased LV systolic function, borderline concentric LVH. Nephrology was consulted for an STEVEN that is likely secondary to vasomotor nephropathy. Patient was counseled about her presumed upper respiratory infection and why antibiotics are not typically administered. The patient endorsed having coughing for approximately 4 days prior to presentation. Chest x-ray was unremarkable for infiltration, pleural effusion, or increased interstitial markings suggestive of pulmonary edema. Patient is medically clear for discharge. Disposition: 01 HOME / SELF CARE / HOMELESS Final Discharge Diagnosis (Prints w/discharge instructions): Newly diagnosed systolic heart failure, STEVEN secondary to vasomotor nephropathy, hyponatremia, metabolic acidosis, accelerated hypertension, noninsulin-dependent type 2 diabetes mellitus with hyperglycemia Time spent for discharge: 45 min Core Measure Documentation - Palliative Care Palliative Care/ Comfort Measures: Not Applicable - Core Measures Any of the following diagnoses?: heart failure - Heart Failure Discharge Requirements MARIA EUGENIA/ARB for LVSD if EF <40%: No Reason for no MARIA EUGENIA/ARB: Renal impairment Beta chong at discharge: Yes Exam - Constitutional Vitals: Temp Pulse Resp BP Pulse Ox 98.8 F 67 18 122/59 98 08/15/21 23:47 08/16/21 08:07 08/15/21 23:47 08/16/21 08:07 08/16/21 09:00 General appearance: Present: no acute distress, well-nourished - EENT Eyes: Present: PERRL, EOM intact ENT: hearing intact, clear oral mucosa, dentition normal - Neck Neck: Present: supple, normal ROM - Respiratory Respiratory effort: normal Respiratory: bilateral: diminished - Cardiovascular Rhythm: regular Heart Sounds: Present: S1 & S2 - Extremities Extremities: no ischemia, pulses intact, pulses symmetrical, No edema, normal temperature, normal color Peripheral Pulses: within normal limits - Abdominal General gastrointestinal: Present: soft, non-tender, non-distended, normal bowel sounds Female genitourinary: Present: deferred - Rectal Rectal Exam: deferred - Integumentary Integumentary: Present: clear, warm, dry - Musculoskeletal Musculoskeletal: strength equal bilaterally - Psychiatric Psychiatric: appropriate mood/affect, memory intact, cooperative - Neurologic Neurologic: CNII-XII intact, moves all extremities - Allied Health Allied health notes reviewed: nursing Plan Activity: advance as tolerated Diet: low salt Additional Instructions: 56 YO Female with HTN, DM complicated by Neuropathy, Metabolic Syndrome presents to ED for evaluation. Patient reports "I am getting weak my chest hurts and I am short of breath. Patient states that over the past 1 week she has experienced shortness of breath, decreased exercise tolerance, dyspnea on exertion, dyspnea at rest, orthopnea, paroxysmal nocturnal dyspnea, and lower extremity edema. Patient also reports chest pain over the past 2 days. Patient states that pain is 9/10, constant, worsened with exertion, relieved with rest, substernal, crushing in nature, nonradiating, associated with shortness of breath. Patient transported to [facility] via private vehicle for further care and evaluation of the aforementioned symptoms. Patient acknowledges noncompliance with antihypertensive medication as well as 8 pound unintentional weight gain over the past 1 week. Patient was seen and evaluated in the emergency department. All lab and imaging studies reviewed. Patient found to have a blood pressure of 165/71 mmHg which is consistent with accelerated hypertension as well as clinical symptoms consistent with angina, new onset congestive heart failure, cardiorenal syndrome, SIRS, hyponatremia, metabolic acidosis. Patient admitted to telemetry and initiated on ACS protocol as well as CHF protocol. Cardiology team consulted in ED. Patient denies fever, chills, productive cough, skin rash, recent contact, known exposure to COVID-19. Cardiology was consulted, and the patient underwent medical management for heart failure exacerbation. TTE revealed an EF 40-45% with mildly dilated LV, mildly decreased LV systolic function, borderline concentric LVH. Nephrology was consulted for an STEVEN that is likely secondary to vasomotor nephropathy. Patient was counseled about her presumed upper respiratory infection and why antibiotics are not typically administered. The patient endorsed having coughing for approximately 4 days prior to presentation. Chest x-ray was unremarkable for infiltration, pleural effusion, or increased interstitial markings suggestive of pulmonary edema. Patient is medically clear for discharge. Care Plan Goals: Patient is medically clear for discharge. Assessment: 56 YO Female with HTN, DM complicated by Neuropathy, Metabolic Syndrome presents to ED for evaluation. Patient reports "I am getting weak my chest hurts and I am short of breath. Patient states that over the past 1 week she has experienced shortness of breath, decreased exercise tolerance, dyspnea on exertion, dyspnea at rest, orthopnea, paroxysmal nocturnal dyspnea, and lower extremity edema. Patient also reports chest pain over the past 2 days. Patient states that pain is 9/10, constant, worsened with exertion, relieved with rest, substernal, crushing in nature, nonradiating, associated with shortness of breath. Patient transported to [facility] via private vehicle for further care and evaluation of the aforementioned symptoms. Patient acknowledges noncompliance with antihypertensive medication as well as 8 pound unintentional weight gain over the past 1 week. Patient was seen and evaluated in the emergency department. All lab and imaging studies reviewed. Patient found to have a blood pressure of 165/71 mmHg which is consistent with accelerated hypertension as well as clinical symptoms consistent with angina, new onset congestive heart failure, cardiorenal syndrome, SIRS, hyponatremia, metabolic acidosis. Patient admitted to telemetry and initiated on ACS protocol as well as CHF protocol. Cardiology team consulted in ED. Patient denies fever, chills, productive cough, skin rash, recent contact, known exposure to COVID-19. Cardiology was consulted, and the patient underwent medical management for heart failure exacerbation. TTE revealed an EF 40-45% with mildly dilated LV, mildly decreased LV systolic function, borderline concentric LVH. Nephrology was consulted for an STEVEN that is likely secondary to vasomotor nephropathy. Patient was counseled about her presumed upper respiratory infection and why antibiotics are not typically administered. The patient endorsed having coughing for approximately 4 days prior to presentation. Chest x-ray was unremarkable for infiltration, pleural effusion, or increased interstitial markings suggestive of pulmonary edema. Patient is medically clear for discharge. Follow up with: ANNAMARIA GUERRA MD [Primary Care Provider] - 7 Days Forms: Work/School Release Form Prescriptions: Aspirin [Aspirin BABY CHEW TAB] 81 mg PO QDAY #30 tab.chew Isosorb Dinit/Hydralazine [Bidil 20/37.5MG] 1 each PO Q8HR #90 tablet carvediloL [Coreg] 6.25 mg PO BID #60 tablet
[2021-08-16] MEDS: ALBUTEROL 2.5 MG/3 ML NEBU IH PRN (12:28)
[2021-08-16 12:46] VITALS: BP 136/72
[2021-08-16] MEDS ORDERED: ISOSORB DINIT/HYDRALAZINE 20-37.5MG TAB PO SCH (14:00)
== END 2021-08-16 14:00 | disposition home or self-care (01) | DRG 291 ==
LOC: ED 10:09 → 4A 18:17
PROVIDERS: ADMIT Internal Medicine; ATTEND Student in an Organized Health Care Education/Training Program
DX: I13.0 Hypertensive heart and chronic kidney disease with heart failure and stage 1 through stage 4 chronic kidney disease, or unspecified chronic kidney disease (principal); I50.21 Acute systolic (congestive) heart failure; N17.0 Acute kidney failure with tubular necrosis; E87.1 Hypo-osmolality and hyponatremia; E87.2 Acidosis; R65.10 Systemic inflammatory response syndrome (SIRS) of non-infectious origin without acute organ dysfunction; E11.65 Type 2 diabetes mellitus with hyperglycemia; E11.40 Type 2 diabetes mellitus with diabetic neuropathy, unspecified; I42.9 Cardiomyopathy, unspecified; N18.9 Chronic kidney disease, unspecified; E88.81 Metabolic syndrome and other insulin resistance; E86.0 Dehydration; Z83.3 Family history of diabetes mellitus; Z82.49 Family history of ischemic heart disease and other diseases of the circulatory system; Z79.899 Other long term (current) drug therapy; Z79.4 Long term (current) use of insulin
CPT/HCPCS: 36415; 71046; 76770; 80048; 80053; 81001; 82570; 82962; 83735; 83880; 83970; 84156; 84300; 84439; 84443; 84484; 85025; 85610; 85730; 87086; 93005; 93306; 94640; 94760; G0378; Q9967; C8929; J0696; J1644; J1815; J1940; J2930